=== PATIENT | male | born 1940 | race Caucasian/White ===

== ENCOUNTER 2016-07-08 14:41 | Emergency (ER) | payer OTHER ==
[~2016-07-08] VITALS: Ht 177.8 cm; Wt 79.4 kg
[~2016-07-08 14:41] MED LIST: ALBU8.5H2 IH; APIX5TAB PO; ATEN25TA PO; CELE-85 PO; CYAN10006 IM; DARU400T2 PO; DILT180C66 PO; ELVI1TAB3 PO; ERGO500047 PO; FINA5TAB11 PO; FURO40TA5 PO; GLIP10TA11 PO; HYDR10TA14 PO; INSU100V7 SQ; LISI20TA61 PO; LORA0.5T PO; LOTE5DRO3 EACHEYE; MINE454C9 TP; OXYC15TA2 PO; PANT40TA4 PO; POTA8TAB8 PO; PREG300C PO; PREG75CA PO; ROPI4TAB4 PO; SITA100T PO
[2016-07-08] MEDS ORDERED: BACI/NEOM/POLY B OINT PKT 1 UDPKT PACKET TP ONE (16:00)
[2016-07-08] MEDS ORDERED: LIDOCAINE 1%-EPI 1:100,000 20 ML VIAL TP ONE (16:00)
[2016-07-08 16:29] VITALS: BP 142/68
== END 2016-07-08 16:30 | disposition home or self-care (01) ==
LOC: ER 14:43
DX: S61.412A Laceration without foreign body of left hand, initial encounter (principal); E11.9 Type 2 diabetes mellitus without complications; I10 Essential (primary) hypertension; I48.91 Unspecified atrial fibrillation; F17.210 Nicotine dependence, cigarettes, uncomplicated; W27.8XXA Contact with other nonpowered hand tool, initial encounter; Y93.89 Activity, other specified; Y92.89 Other specified places as the place of occurrence of the external cause; Y99.8 Other external cause status
CPT/HCPCS: A4606; A6402; Z7610

== ENCOUNTER 2016-08-08 07:36 | Inpatient (IN) | payer OTHER ==
[~2016-08-08] VITALS: Ht 180.3 cm; Wt 80.3 kg
--- NOTE | 2016-08-08 07:40 | NUR ---
Bibra from home due to sob. Patient is aao4, appears in no acute distress, respiration even and unlabored. Sating well on room air. Patient denies chest pain. Skin is warm to touch and non diaphoretic. Afebrile at this time, vss. Gowned and placed pt on tele monitor. Will cont to monitor
[2016-08-08 08:32] LABS: BASOPHILS % (AUTO) 0.3 % (0.0-2.0); EOSINOPHILS # (AUTO) 0.1 /CMM (0.0-0.7); EOSINOPHILS % (AUTO) 2.1 % (0.0-6.0); HEMATOCRIT 42 % (39-51); HEMOGLOBIN 13.9 g/dL (13.5-17.5); LYMPHOCYTES # (AUTO) 1.2 /CMM (0.8-4.8); LYMPHOCYTES % (AUTO) 22.2 % (20.0-44.0); MEAN CORPUSCULAR HEMOGLOBIN 31 PG (26.0-33.0); MEAN CORPUSCULAR HGB CONC 33 g/dl (31.0-36.0); MEAN CORPUSCULAR VOLUME 93 fL (80-96); MONOCYTES # (AUTO) 0.5 /CMM (0.1-1.30); MONOCYTES % (AUTO) 9.3 % (2.0-12.0); NEUTROPHILS # (AUTO) 3.5 /CMM (1.8-8.9); NEUTROPHILS % (AUTO) 66.1 % (43.0-81.0); PLATELET COUNT (AUTO) 120 /CMM (150-450); RDW COEFFICIENT OF VARIATION 15.6 (11.5-15.0); RED BLOOD CELL COUNT(AUTO) 4.56 MIL/uL (4.5-6.0); WHITE BLOOD COUNT (AUTO) 5.3 K/uL (4.3-11.0)
[2016-08-08 08:40] LABS: CALCIUM, SERUM 9.5 mg/dL (8.5-10.1); CREATININE 1.3 mg/dL (0.6-1.3); POTASSIUM 4.1 mmol/L (3.5-5.1)
[2016-08-08 08:48] LABS: TROPONIN I 0.017 ng/mL (0.00-0.056)
--- NOTE | 2016-08-08 08:48 | NUR ---
Missy valentino in [facility] - 08/08/16 at 0849 by ANH VARIETY LATHE OPERATOR AT BEDSIDE FOR EVALUATION
--- NOTE | 2016-08-08 08:49 | NUR ---
histopath tech at bs
[2016-08-08 08:50] LABS: PROTHROMBIN TIME 10.7 SECS (9.5-12.7)
[2016-08-08 08:51] LABS: APPEARANCE,URINE SL CLOUDY (CLEAR); BILIRUBIN,URINE NEGATIVE (NEGATIVE); BLOOD, URINE NEGATIVE Ery/uL (NEGATIVE); COLOR,URINE YELLOW (YELLOW); KETONES,URINE NEGATIVE (NEGATIVE); LEUKOCYTE ESTERASE ,URINE NEGATIVE (NEGATIVE); NITRITE, URINE NEGATIVE (NEGATIVE); PH,URINE 7.5 (5.0-8.0); PROTEIN,URINE TRACE mg/dl (NEGATIVE); UGLUCOSE NEGATIVE (NEGATIVE); UROBILINOGEN,URINE 0.2 EU/dL (0.2)
[2016-08-08 08:54] LABS: ALBUMIN 3.7 g/dL (3.4-5.0); BILIRUBIN,DIRECT 0.1 mg/dL (0.0-0.2); BILIRUBIN,TOTAL 0.4 mg/dL (0.2-1.0); TOTAL PROTEIN, SERUM 6.8 g/dL (6.4-8.2)
[2016-08-08 08:59] LABS: LACTIC ACID 0.8 mmol/L (0.4-2.0)
[2016-08-08 09:06] LABS: RBC,URINE NONE SEEN /HPF (0-2); WBC,URINE 0-2 /HPF (0-3)
[2016-08-08 09:07] LABS: ADD URINE CULTURE NO; BACTERIA,URINE None seen /HPF (None Seen); MUCUS,URINE Rare /LPF (None Seen); SQUAMOUS EPITHELIAL CELL,UR Rare /HPF (None Seen)
[2016-08-08] MEDS ORDERED: PREG150C PO (09:08)
[2016-08-08] MEDS ORDERED: DILT300C36 PO (09:08)
[2016-08-08] MEDS ORDERED: DIAZ5TAB PO (09:08)
[2016-08-08] MEDS ORDERED: METF10002 PO (09:08)
[2016-08-08] MEDS ORDERED: IV NS 0.9% 1,000 ML IV PRN (09:53)
[2016-08-08] MEDS ORDERED: DILTIAZEM HCL CD 300 MG PO SCH (10:00)
[2016-08-08] MEDS ORDERED: ACETAMINOPHEN 325 MG TABLET PO PRN ×2 (10:00→10:30)
[2016-08-08] MEDS ORDERED: ERGOCALCIFEROL (VITAMIN D 2) 50,000 UNIT CAPSULE PO SCH ×2 (10:00→10:43)
[2016-08-08] MEDS ORDERED: LEVOFLOXACIN 750 MG /D5W 150ML 750 MG in PREMIX 1 EA IV SCH (10:00)
[2016-08-08] MEDS ORDERED: FINASTERIDE (5 MG) 5 MG TABLET PO SCH (10:00)
[2016-08-08] MEDS ORDERED: Z GUARD REMEDY 2 OZ OINT TP PRN ×2 (10:00→10:30)
[2016-08-08] MEDS ORDERED: PANTOPRAZOLE 40 MG TABLET.DR PO SCH (10:00)
[2016-08-08] MEDS ORDERED: LISINOPRIL (20MG) 20 MG TABLET PO SCH (10:00)
[2016-08-08] MEDS ORDERED: ONDANSETRON HCL/PF 4 MG/2 ML VIAL IVP PRN ×2 (10:00→10:30)
[2016-08-08] MEDS ORDERED: MAGNESIUM HYDROXIDE 30 ML UDC PO PRN ×2 (10:00→10:30)
[2016-08-08] MEDS ORDERED: HYDROCORTISONE 10 MG TABLET PO SCH ×3 (10:00→10:34)
[2016-08-08] MEDS ORDERED: MAG HYDROX/AL HYDROX/SIMETH 30 ML UDC PO PRN ×2 (10:00→10:30)
[2016-08-08] MEDS ORDERED: DIAZEPAM 5 MG TABLET PO PRN ×2 (10:00→10:30)
[2016-08-08] MEDS ORDERED: HYDROCODONE/APAP 5/325MG 1 EACH TABLET PO PRN (10:00)
[2016-08-08] MEDS ORDERED: ZOLPIDEM TARTRATE 5 MG TABLET PO PRN ×2 (10:00→10:30)
[2016-08-08] MEDS ORDERED: APIXABAN 5 MG TABLET PO SCH ×2 (10:00→10:30)
--- NOTE | 2016-08-08 10:16 | NUR ---
Report given to floor RN for anna
--- NOTE | 2016-08-08 10:18 | NUR ---
Patient transported to tele 1. [facility]
--- NOTE | 2016-08-08 10:30 | NUR ---
RN INITIAL NOTES PT RECEIVED IN A GURNEY, TRANSFERRED TO BED SAFELY, ORIENTED PT IN THE ROOM, PT IS ALERT AND ORIENTED X4 HOB ELEVATED AT 35 DEGREES. PT IS ON 2L NS, SATURATION OF 99%, NO SIGNS OF DISTRESS NOTED, IV SITES IS PATENT, NO SIGNS AND SYMPTOMS OF INFECTION OR INFILTRATION. CALL LIGHTS WITHIN REACH,
[2016-08-08 11:00] VITALS: BP 167/65
[2016-08-08] MEDS ORDERED: APIXABAN 5 MG TABLET PO ONE (11:00)
[2016-08-08] MEDS: CELECOXIB 100 MG CAPSULE PO SCH (11:03)
[2016-08-08] MEDS: FINASTERIDE (5 MG) 5 MG TABLET PO SCH (11:04)
[2016-08-08] MEDS: LISINOPRIL (20MG) 20 MG TABLET PO SCH (11:05)
[2016-08-08] MEDS ORDERED: IV SET PRIMARY PUMP SET 1 EA INFUS.SET MC ONE (11:10)
[2016-08-08] MEDS: DILTIAZEM HCL CD 300 MG PO SCH (11:15)
[2016-08-08] MEDS: LEVOFLOXACIN 750 MG /D5W 150ML 750 MG in PREMIX 1 EA IV SCH (11:15)
[2016-08-08] MEDS: PREGABALIN 25 MG CAPSULE PO SCH ×2 (11:15→16:44)
[2016-08-08] MEDS: IV NS 0.9% 1,000 ML IV PRN (11:16)
--- NOTE | 2016-08-08 11:30 | NUR ---
RN NOTES: Referred to Dr. Manning BP is high 197/70mmhg, with NNO, as per MD to continue to monitor. Referred to MD as well for Blood sugar check ACHS with no insulin coverage, noted and carried out.
[2016-08-08 12:00] VITALS: BP 197/70
[2016-08-08] MEDS: BLOOD SUGAR DIAGNOSTIC 1 EACH STRIP IN SCH ×3 (13:09→21:26)
[2016-08-08] MEDS: HYDROCODONE/APAP 5/325MG 1 EACH TABLET PO PRN (13:27)
[2016-08-08 14:30] VITALS: BP 179/60
--- NOTE | 2016-08-08 15:22 | NUR ---
RN NOTES CALLED DR FRIEDMAN FOR ORDER REGARDING PT HIGH BLOOD PRESSURE, CURRENT VS 191/61, ORDERED HYDRALAZINE 25 MG EVERY 6 HOURS. CARRIED OUT ORDER.
[2016-08-08] MEDS ORDERED: hydrALAZINE HCL 25 MG TABLET PO SCH ×2 (15:30→16:51)
[2016-08-08 16:00] VITALS: BP 191/66
[2016-08-08] MEDS: METFORMIN 500 MG TABLET PO SCH (16:44)
[2016-08-08 17:00] VITALS: BP 181/78
--- NOTE | 2016-08-08 17:41 | NUR ---
RN NOTES: patient noted episodes of bradycardia lowest of 40bpm, patient is asleep and when awake HR goes up to 50-57bpm, stable, no acute distress noted, no pain or discomfort noted, as per MD NNO and continue to monitor. Informed Dr. Manning as well latest BP of 181/78mmhg and HR 51bpm.
[2016-08-08] MEDS: HYDROCORTISONE 5 MG TABLET PO SCH (19:25)
--- NOTE | 2016-08-08 19:28 | NUR ---
RN NOTES; Patient remain stable within shift despite having Bradycardia, no signs and symptoms of distress noted. Call light placed within reached, able to make needs known, verbalized understanding to press call light when in need of any assistance. To monitor BP and refer accordingly. Endorsed to next shift for continuity of care.
--- NOTE | 2016-08-08 19:30 | NUR ---
RN INITIAL NOTES RECEIVED PATIENT IN BED, AWAKE AND ALERT. PATIENT WITH NO ACUTE DISTRESS OBSERVED AT THIS TIME. SINUS FEDERICO WITH HR OF 57 AT THIS TIME. ON 2LPM OF O2 VIA NC. RESPIRATION IS EVEN AND UNLABORED WITH NO DISTRESS. L FOREARM G20, PATENT AND INTACT, NO SIGNS OF INFILTRATION, IVF RUNNING ORDERED. PATIENT'S NEEDS ANTICIPATED AND MET. SAFETY AND COMFORT ENSURED. BED IN LOW AND LOCKED POSITION. CALL LIGHT IN REACH. BED ALARM IN PLACE FOR FALL PRECAUTION. WILL MONITOR.
[2016-08-08 20:00] VITALS: BP 179/80
--- NOTE | 2016-08-08 20:20 | NUR ---
RN NOTES PATIENT COMPLAINING OF PAIN ON LOWER BACK AND REQUESTED FOR OXYCODONE IR PRN. RECHECKED ON PATIENT AND PATIENT IN BED, SLEEPING WELL AND COMFORTABLY WITH NO DISTRESS. HELD OXYCODONE IR AT THIS TIME. WILL ADMINISTER TO PATIENT NEEDED AND PER REQUEST. WILL MONITOR.
[2016-08-08] MEDS: hydrALAZINE HCL 25 MG TABLET PO SCH (21:27)
[2016-08-08] MEDS: oxyCODONE IR immediate release 5 MG CAPSULE PO PRN (21:28)
--- NOTE | 2016-08-08 21:30 | NUR ---
RN NOTES PATIENT AWAKE AT THIS TIME. ALL DUE MEDS GIVEN ORDERED. PATIENT WITH COMPLAIN OF LOWER BACK PAIN, 12/15. OXY IR PRN GIVEN ORDERED. NEEDS ANTICIPATED AND MET. CALL LIGHT IN REACH.
--- NOTE | 2016-08-08 23:30 | NUR ---
RN NOTES PATIENT'S CAREGIVER WAS IN THE UNIT AND PROVIDED SUPPLY FOR PREZISTA, GENVOYA, ELIQUIS; MEDICATIONS NOT AVAILABLE IN THE PHARMACY. PATIENT INSISTED ON TAKING HIS MAINTENANCE MEDICATIONS HE HAS MISSED ALL HIS MEDS THIS MORNING. INFORMED DR. FERRARO OF THE PATIENT'S MEDICATIONS READILY AVAILABLE AT THIS TIME AND THE PATIENT'S INSISTANCE ON TAKING THE MEDS. DR. FERRARO IN THE UNIT, SAW THE PILLS AND THE MEDICATION LABEL AND OKAYED FOR THE MEDICATIONS TO BE ADMINISTERED ONE TIME TONIGHT AND RESUME REGULAR ADMINISTRATION FREQUENCY IN AM. ORDER NOTED AND CARRIED OUT. CN MADE AWARE. CAREGIVER TO PROVIDE ANOTHER SUPPLY FOR AM DOSE.
[2016-08-09] VITALS (7 sets, daily range): BP systolic 157–190; BP diastolic 63–107
[2016-08-09] MEDS ORDERED: HOME MED MISCELLANEOUS PO ONE ×3
[2016-08-09] MEDS: IV NS 0.9% 1,000 ML IV PRN (04:25)
[2016-08-09] MEDS: hydrALAZINE HCL 25 MG TABLET PO SCH ×4 (04:26→21:44)
--- NOTE | 2016-08-09 05:00 | NUR ---
RN NOTES PATIENT'S BS CHECKED PER PATIENT'S REQUEST. NOTED TO BE 123. NO SIGNS OF HYPO/HYPERGLYCEMIA. PATIENT'S BP IS 171/63, 56. DENIES ANY CARDIAC DISTRESS AND DISCOMFORT. PATIENT'S NEEDS ANTICIPATED AND MET. NO C/O PAIN AND DISCOMFORT AT THIS TIME. HYDRALAZINE ADMINISTERED ORDERED. CALL LIGHT IN REACH. WILL MONITOR.
[2016-08-09] MEDS: oxyCODONE IR immediate release 5 MG CAPSULE PO PRN ×2 (06:20→18:12)
[2016-08-09] MEDS: PANTOPRAZOLE 40 MG TABLET.DR PO SCH (06:30)
--- NOTE | 2016-08-09 06:57 | NUR ---
RN CLOSING NOTES PATIENT WITH NO ACUTE DISTRESS OBSERVED OVERNIGHT. PATIENT REFUSED ACCUCHECK AT THIS TIME, STATED THAT HE IS COMFORTABLY WITH THE SUGAR CHECKED AT 0500, THAT IS 123. COMPLAINED OF 9/10 "SPINAL" PAIN, LOWER BACK. OXY IR PRN GIVEN PER PATIENT'S REQUEST. PATIENT SLEPT COMFORTABLY FOR THE NIGHT, REPORTS THAT HE IS WELL RESTED. ALL DUE MEDS GIVEN ORDERED. PATIENT'S NEEDS ANTICIPATED AND MET. SAFETY AND COMFORT ENSURED. BED IN LOW AND LOCKED POSITION. CALL LIGHT IN REACH. WILL ENDORSE ACCORDINGLY FOR CONTINUITY OF CARE.
[2016-08-09] MEDS: BLOOD SUGAR DIAGNOSTIC 1 EACH STRIP IN SCH ×4 (07:37→21:44)
--- NOTE | 2016-08-09 07:42 | NUR ---
RN INITIAL NOTES PT IS IN BED, ELEVATED 35 DEGREES, PT ALERT AND ORIENTED X4, PT IS ON 2L NS, SATURATION OF 99%, NO SIGNS OF DISTRESS NOTED, IV SITES IS PATENT, NO SIGNS AND SYMPTOMS OF INFECTION OR INFILTRATION. CALL LIGHTS WITHIN REACH,
[2016-08-09] MEDS ORDERED: APIXABAN 2.5 MG TABLET PO SCH (09:07)
[2016-08-09] MEDS: PREGABALIN 25 MG CAPSULE PO SCH ×2 (09:23→18:07)
[2016-08-09] MEDS: FINASTERIDE (5 MG) 5 MG TABLET PO SCH (09:24)
[2016-08-09] MEDS: CELECOXIB 100 MG CAPSULE PO SCH (09:24)
[2016-08-09] MEDS: METFORMIN 500 MG TABLET PO SCH ×2 (09:24→16:58)
[2016-08-09] MEDS: HYDROCORTISONE 20 MG TABLET PO SCH (09:41)
--- NOTE | 2016-08-09 09:45 | NUR ---
WOUND CARE CONSULT: PATIENT SEEN AND SKIN ASSESSMENT DONE. PRIVATE CAREGIVE AT THE BEDSIDE. PATIENT ALERT, ORIENTED, AMBULATORY, INDEPENDENT WITH BED MOBILITY, ROBERT 21, CONTINENT. SEE TODAY'S SKIN ASSESSMENT IN PCS ALONG WITH RECOMMENDATIONS FOR SKIN CARE, MOISTURE PROTECTION WITH Z GUARD ORDERED, OFFLOADING. ALL DISCUSSED WITH NURSING STAFF. MD IN AGREEMENT WITH PLAN OF CARE. Addendum: 08/09/16 at 0947 by JÚNIOR DURAND WNDNU Amended: Links added.
[2016-08-09] MEDS: HYDROCODONE/APAP 5/325MG 1 EACH TABLET PO PRN (11:55)
[2016-08-09] MEDS: LEVOFLOXACIN 750 MG /D5W 150ML 750 MG in PREMIX 1 EA IV SCH (11:57)
--- NOTE | 2016-08-09 12:35 | NUR ---
RN NOTES: Referred to Dr. Prabhakar, patients HR is on the lowside HR's on the 50's and BP high 169/78mmhg, with no signs and symptoms of distress noted. NO chestpain, no pain or discomfort noted. Patient has Cardizem 300mgs, Hydralazine 25mg and Lisinopril 40mgs, as per MD give Lisinopril and withhold the rest of the Anti-HPN medication, noted and carried out.
[2016-08-09] MEDS: DILTIAZEM HCL CD 300 MG PO SCH (12:45)
[2016-08-09] MEDS: DARUNAVIR ETHANOLATE 800 MG PO SCH (14:21)
[2016-08-09] MEDS: [UNRECOGNIZED DRUG - OTHER] PO SCH (14:21)
[2016-08-09] MEDS: LISINOPRIL (20MG) 20 MG TABLET PO SCH (14:21)
--- NOTE | 2016-08-09 16:17 | NUR ---
RN NOTES: Seen and examined by Dr. Prabhakra with orders noted and carried out. Dc IVF and noted BP high of 190/82mmhg HR 55 ok to give Hydralazine as ordered.
[2016-08-09] MEDS: HOME MED - ELIQUIS 5MG PO SCH (16:58)
[2016-08-09] MEDS: HYDROCORTISONE 5 MG TABLET PO SCH (17:00)
--- NOTE | 2016-08-09 18:59 | NUR ---
RN CLOSING NOTES PT IS SITTING IN CHAIR, NO SIGNS AND SYMPTOMS OF DISTRESS NOTED, PT IS ON ROOM AIR, PT WAS ASSISTED WITH TURNING AND REPOSITIONING, IV SITES PATENT, NO SIGNS AND SYMPTOMS OF INFECTION/INFILTRATION NOTED, ALL MEDICATIONS GIVEN AND PT TOLERATED IT WELL. SAFETY MEASURES MAINTAINED, CALL LIGHTS WITHIN REACH. ENDORSED TO THE NIGHT NURSE
--- NOTE | 2016-08-09 20:13 | NUR ---
MS1/RN RECEIVE PATIENT AWAKE, ALERT, ORIENTED, SITTING IN CHAIR AT BEDSIDE, COMFORTABLE, NO C/O PAIN AT THIS TIME, NO SIGNS OF DISTRESS, CALL LIGHT IN REACH. WILL MONITOR.
--- NOTE | 2016-08-10 00:21 | NUR ---
MS1/RN SLEEPING AT THIS TIME, AROUSABLE, APPEAR COMFORTABLE, NO SIGNS OF DISTRESS NOTED, CALL LIGHT IN REACH. WILL CONTINUE TO MONITOR.
[2016-08-10] MEDS: hydrALAZINE HCL 25 MG TABLET PO SCH ×2 (03:17→08:46)
[2016-08-10] MEDS: oxyCODONE IR immediate release 5 MG CAPSULE PO PRN ×2 (03:22→09:22)
[2016-08-10 04:00] VITALS: BP 153/82
--- NOTE | 2016-08-10 06:32 | NUR ---
MS1/RN PATIENT IS AWAKE, COMFORTABLE, NO CHANGE IN CONDITION. ALL NEEDS ATTENDED AT THIS TIME. WILL CONTINUE TO MONITOR.
[2016-08-10 07:05] LABS: BASOPHILS % (AUTO) 0.2 % (0.0-2.0); EOSINOPHILS # (AUTO) 0.2 /CMM (0.0-0.7); EOSINOPHILS % (AUTO) 2.7 % (0.0-6.0); HEMATOCRIT 39 % (39-51); HEMOGLOBIN 13.2 g/dL (13.5-17.5); LYMPHOCYTES # (AUTO) 2.1 /CMM (0.8-4.8); LYMPHOCYTES % (AUTO) 30.9 % (20.0-44.0); MEAN CORPUSCULAR HEMOGLOBIN 32 PG (26.0-33.0); MEAN CORPUSCULAR HGB CONC 34 g/dl (31.0-36.0); MEAN CORPUSCULAR VOLUME 94 fL (80-96); MONOCYTES # (AUTO) 0.6 /CMM (0.1-1.30); MONOCYTES % (AUTO) 9.5 % (2.0-12.0); NEUTROPHILS # (AUTO) 3.8 /CMM (1.8-8.9); NEUTROPHILS % (AUTO) 56.7 % (43.0-81.0); PLATELET COUNT (AUTO) 105 /CMM (150-450); RDW COEFFICIENT OF VARIATION 15.3 (11.5-15.0); RED BLOOD CELL COUNT(AUTO) 4.13 MIL/uL (4.5-6.0); WHITE BLOOD COUNT (AUTO) 6.7 K/uL (4.3-11.0)
[2016-08-10 07:15] LABS: CALCIUM, SERUM 8.8 mg/dL (8.5-10.1); CREATININE 1.1 mg/dL (0.6-1.3); POTASSIUM 3.9 mmol/L (3.5-5.1)
[2016-08-10] MEDS: PANTOPRAZOLE 40 MG TABLET.DR PO SCH (07:30)
[2016-08-10] MEDS: BLOOD SUGAR DIAGNOSTIC 1 EACH STRIP IN SCH ×2 (07:45→11:27)
[2016-08-10 08:00] VITALS: BP 171/83
[2016-08-10] MEDS: LISINOPRIL (20MG) 20 MG TABLET PO SCH (08:46)
[2016-08-10] MEDS: FINASTERIDE (5 MG) 5 MG TABLET PO SCH (08:46)
[2016-08-10] MEDS: CELECOXIB 100 MG CAPSULE PO SCH (08:46)
[2016-08-10] MEDS: METFORMIN 500 MG TABLET PO SCH (08:46)
[2016-08-10] MEDS: DARUNAVIR ETHANOLATE 800 MG PO SCH (08:47)
[2016-08-10] MEDS: HYDROCORTISONE 20 MG TABLET PO SCH (08:47)
[2016-08-10 08:48] VITALS: BP 171/83
[2016-08-10] MEDS: DILTIAZEM HCL CD 300 MG PO SCH (08:48)
[2016-08-10] MEDS: HOME MED - ELIQUIS 5MG PO SCH (08:48)
[2016-08-10] MEDS: [UNRECOGNIZED DRUG - OTHER] PO SCH (08:48)
[2016-08-10] MEDS: PREGABALIN 25 MG CAPSULE PO SCH (08:56)
--- NOTE | 2016-08-10 09:00 | NUR ---
MS RN NOTE Pt AOx4. No s/s distress. BP 171/83, pt says BP normally that high, no chest pain, gave morning BP meds. Left forearm IV SL. Oxycodone given for back pain. Went on walk around floor with caregiver and walker. Will cont to monitor.
[2016-08-10] MEDS: LEVOFLOXACIN 750 MG /D5W 150ML 750 MG in PREMIX 1 EA IV SCH (11:24)
[2016-08-10] MEDS ORDERED: LEVO500T15 PO (13:32)
[2016-08-10] MEDS ORDERED: IPRA3AMP IH (13:32)
--- NOTE | 2016-08-10 14:32 | NUR ---
DISCHARGE Pt discharging with activities coordinator in wheelchair to home. IV removed. Discharge education provided, script sent with pt with paperwork.
== END 2016-08-10 16:42 | disposition home or self-care (01) | DRG 193 ==
LOC: ER 07:38 → TELE1 10:23 → MEDSG1 08-09 06:01
PROVIDERS: ADMIT Internal Medicine; ATTEND Internal Medicine
DX: J15.9 Unspecified bacterial pneumonia (principal); N17.0 Acute kidney failure with tubular necrosis; J98.11 Atelectasis; J47.9 Bronchiectasis, uncomplicated; F03.90 Unspecified dementia, unspecified severity, without behavioral disturbance, psychotic disturbance, mood disturbance, and anxiety; G62.9 Polyneuropathy, unspecified; G89.29 Other chronic pain; M54.5 Low back pain; N40.0 Benign prostatic hyperplasia without lower urinary tract symptoms; I10 Essential (primary) hypertension; E11.9 Type 2 diabetes mellitus without complications; Z79.52 Long term (current) use of systemic steroids; Z86.718 Personal history of other venous thrombosis and embolism; G25.81 Restless legs syndrome; I48.91 Unspecified atrial fibrillation; D64.9 Anemia, unspecified; F32.9 Major depressive disorder, single episode, unspecified; Z79.01 Long term (current) use of anticoagulants; Z79.84 Long term (current) use of oral hypoglycemic drugs
CPT/HCPCS: 36415; 71010-TC; 80048-TC; 80076-TC; 81000-TC; 82962-TC; 83605-TC; 83880; 84484-TC; 85025-TC; 85730-TC; 87040-TC; 87081-TC; 87086-TC; A4216; A4606; G6039-TC; J1956; J7030; Z7610

== ENCOUNTER 2017-01-04 13:54 | Inpatient (IN) | payer OTHER ==
[~2017-01-04] VITALS: Ht 177.8 cm; Wt 76.7 kg
[~2017-01-04 13:54] MED LIST changes: -ALBU8.5H2 IH; -ATEN25TA PO; -CYAN10006 IM; +DIAZ5TAB PO; -DILT180C66 PO; +DILT300C36 PO; -FURO40TA5 PO; -GLIP10TA11 PO; -INSU100V7 SQ; +IPRA3AMP IH; +LEVO500T15 PO; -LORA0.5T PO; -LOTE5DRO3 EACHEYE; +METF10002 PO; -MINE454C9 TP; -PANT40TA4 PO; -POTA8TAB8 PO; +PREG150C PO; -PREG300C PO; -PREG75CA PO; -SITA100T PO
--- NOTE | 2017-01-04 14:30 | NUR ---
BB FAMILY: ESOPHAGEAL STRICTURE- PT SAID HE FEELS LIKE SOMETHING STUCK IN HIS THROAT. SEEN BY MD FOR EVAL. NO SOB NOTED. ABLE TO TALK FULL SENTENCES. VSS. SAFETY AND COMFORT MEASURES PROVIDED. WILL MONITOR.
[2017-01-04 15:23] LABS: BASOPHILS % (AUTO) 0.8 % (0.0-2.0); EOSINOPHILS # (AUTO) 0.2 /CMM (0.0-0.7); EOSINOPHILS % (AUTO) 2.7 % (0.0-6.0); HEMATOCRIT 41 % (39-51); HEMOGLOBIN 13.3 g/dL (13.5-17.5); LYMPHOCYTES # (AUTO) 1.5 /CMM (0.8-4.8); LYMPHOCYTES % (AUTO) 25.2 % (20.0-44.0); MEAN CORPUSCULAR HEMOGLOBIN 31 PG (26.0-33.0); MEAN CORPUSCULAR HGB CONC 33 g/dl (31.0-36.0); MEAN CORPUSCULAR VOLUME 93 fL (80-96); MONOCYTES # (AUTO) 0.5 /CMM (0.1-1.30); MONOCYTES % (AUTO) 8.2 % (2.0-12.0); NEUTROPHILS # (AUTO) 3.9 /CMM (1.8-8.9); NEUTROPHILS % (AUTO) 63.1 % (43.0-81.0); PLATELET COUNT (AUTO) 108 /CMM (150-450); RDW COEFFICIENT OF VARIATION 13.1 (11.5-15.0); RED BLOOD CELL COUNT(AUTO) 4.35 MIL/uL (4.5-6.0); WHITE BLOOD COUNT (AUTO) 6.1 K/uL (4.3-11.0)
[2017-01-04] MEDS ORDERED: ONDANSETRON HCL/PF 4 MG/2 ML VIAL IVP ONE (15:30)
[2017-01-04 15:33] LABS: CALCIUM, SERUM 9.3 mg/dL (8.5-10.1); CARBON DIOXIDE 29 mmol/L (21-32); CHLORIDE 106 mmol/L (98-107); CREATININE 1.5 mg/dL (0.6-1.3); POTASSIUM 3.6 mmol/L (3.5-5.1); SODIUM SERUM 141 mmol/L (136-145); UREA NITROGEN, BLOOD 39 mg/dL (7-18)
[2017-01-04 15:40] LABS: ALANINE AMINOTRANSFERASE 29 U/L (12-78); ALBUMIN 3.4 g/dL (3.4-5.0); ALKALINE PHOSPHATASE 44 U/L (46-116); ASPARTATE AMINOTRANSFERASE 25 U/L (15-37); BILIRUBIN,DIRECT 0.1 mg/dL (0.0-0.2); BILIRUBIN,TOTAL 0.4 mg/dL (0.2-1.0); GLUCOSE 114 mg/dL (74-106); LIPASE 404 U/L (73-393); TOTAL PROTEIN, SERUM 6.6 g/dL (6.4-8.2)
[2017-01-04] MEDS ORDERED: ONDANSETRON HCL/PF 4 MG/2 ML VIAL ONE (15:43)
[2017-01-04] MEDS ORDERED: IV NS 0.9% 500 ML BAG IV ONE (16:00)
[2017-01-04] MEDS ORDERED: Medication Not On Formulary EA (Ipratropium/Albuterol Sulfate (Duoneb 2.5-0.5 Mg/3 Ml So IH SCH (16:30)
[2017-01-04] MEDS ORDERED: Z GUARD REMEDY 2 OZ OINT TP PRN (16:30)
[2017-01-04] MEDS ORDERED: ONDANSETRON HCL/PF 4 MG/2 ML VIAL IVP PRN (16:30)
[2017-01-04] MEDS ORDERED: ACETAMINOPHEN 325 MG TABLET PO PRN (16:30)
[2017-01-04] MEDS ORDERED: HYDROCODONE/APAP 5/325MG 1 EACH TABLET PO PRN (16:30)
[2017-01-04] MEDS ORDERED: ZOLPIDEM TARTRATE 5 MG TABLET PO PRN (16:30)
[2017-01-04] MEDS ORDERED: DIAZEPAM 5 MG TABLET PO PRN (16:30)
[2017-01-04] MEDS ORDERED: MAG HYDROX/AL HYDROX/SIMETH 30 ML UDC PO PRN (16:30)
[2017-01-04] MEDS ORDERED: MAGNESIUM HYDROXIDE 30 ML UDC PO PRN (16:30)
[2017-01-04] MEDS ORDERED: METFORMIN 500 MG TABLET PO SCH (17:00)
--- NOTE | 2017-01-04 17:34 | NUR ---
REPORT GIVEN TO PAM CASTILLO FOR IVANA
[2017-01-04 17:58] VITALS: BP 135/78
[2017-01-04] MEDS ORDERED: HYDROCORTISONE 10 MG TABLET PO SCH (18:00)
[2017-01-04] MEDS ORDERED: ALBUTEROL FS 2.5 MG/3 ML VIAL.NEB NEB PRN (18:30)
[2017-01-04] MEDS ORDERED: IPRATROPIUM NEB FS 0.5 MG/2.5 ML AMPUL.NEB NEB PRN (18:30)
--- NOTE | 2017-01-04 18:38 | NUR ---
MS/RN REPORT RECEIVED PATIENT FROM ER. REPORT GIVEN BY NANCY CASTILLO. ALERT AND ORIENTED TIMES 4. AMBULATORY. NO SIGNS OF ACUTE DISTRESS. NO COMPLAIN OF PAIN OR DISCOMFORT. ALL NEEDS ATTENDED TO. CALL LIGHT WITHIN REACH. WILL ENDORSE TO NEXT SHIFT FOR CONTINUITY OF CARE.
[2017-01-04] MEDS: IV D5/0.45 NACL 1,000 ML IV PRN (18:45)
--- NOTE | 2017-01-04 19:00 | NUR ---
MS RN OPENING NOTES: RECEIVED PT AND IS RESTING IN BED. PT IS AWAKE AND IS A/OX4. WALKER AT BEDSIDE. URINAL AT BEDSIDE. NO S/S OF DISTRESS. NO COMPLAINTS OF PAIN/DISCOMFORT AT THIS TIME. PT REMINDED THAT HE IS NPO FOR NOW. CALL LIGHT WITHIN PT'S REACH. BED KEPT IN LOW, LOCKED POSITION, AND SIDE RAILS X 2UP. PT HAS IV ON L FOREARM#22G AND IS BEING INFUSED WITH D5 1/2 NS AT 100ML/HR. WILL CONTINUE TO MONITOR PT.
[2017-01-04 20:00] VITALS: BP 134/82
[2017-01-04] MEDS: HYDROCORTISONE 5 MG TABLET PO SCH (21:00)
[2017-01-04] MEDS: PREGABALIN 25 MG CAPSULE PO SCH (21:00)
[2017-01-04] MEDS: FAMOTIDINE/PF INJ 20 MG/2 ML VIAL IV SCH (21:17)
[2017-01-05] VITALS (8 sets, daily range): BP systolic 127–148; BP diastolic 77–80
[2017-01-05] MEDS: MORPHINE SULFATE INJ 2 MG/ML DISP.SYRIN IV PRN ×2 (02:56→06:56)
--- NOTE | 2017-01-05 02:56 | NUR ---
MS RN NOTES: PT IS COMPLAINING OF 9/10 LOWER BACK, SHARP PAIN. PT WAD ADMINISTERED MORPHINE 2MG VIA IV. WILL CONTINUE TO MONITOR PT.
[2017-01-05] MEDS: IV D5/0.45 NACL 1,000 ML IV PRN ×2 (04:35→21:21)
--- NOTE | 2017-01-05 06:26 | NUR ---
MS RN CLOSING NOTES: ALL NEEDS WERE ATTENDED AND ANTICIPATED FOR. PT IS IN BED RESTING AND IS ASLEEP. PT IS A/OX3-4. WALKER AT BEDSIDE. URINAL AT BEDSIDE WELL. OUTPUT WAS 2200ML. PT REMINDED THAT HE IS NPO AGAIN AND THAT HE HAS A SWALLOW EVAL THIS AM. CALL LIGHT WITHIN PT'S REACH. BED KEPT IN LOW, LOCKED POSITION AND SIDE RAILS X 2 UP. PT HAS IV ON L FOREARM #22G AND IS BEING INFUSED WITH D5 1/2NS AT 100ML/HR. CONSENTS FOR BLOOD TRANSFUSION, ANAESTHESIA, AND EGD HAVE BEEN SIGNED AND PLACED IN CHART. WILL ENDORSE TO AM NURSE FOR IVANA.
[2017-01-05 06:54] LABS: BASOPHILS % (AUTO) 0.5 % (0.0-2.0); EOSINOPHILS # (AUTO) 0.2 /CMM (0.0-0.7); EOSINOPHILS % (AUTO) 2.6 % (0.0-6.0); HEMATOCRIT 42 % (39-51); HEMOGLOBIN 13.9 g/dL (13.5-17.5); LYMPHOCYTES # (AUTO) 1.6 /CMM (0.8-4.8); LYMPHOCYTES % (AUTO) 26.1 % (20.0-44.0); MEAN CORPUSCULAR HEMOGLOBIN 32 PG (26.0-33.0); MEAN CORPUSCULAR HGB CONC 34 g/dl (31.0-36.0); MEAN CORPUSCULAR VOLUME 94 fL (80-96); MONOCYTES # (AUTO) 0.7 /CMM (0.1-1.30); MONOCYTES % (AUTO) 10.9 % (2.0-12.0); NEUTROPHILS # (AUTO) 3.6 /CMM (1.8-8.9); NEUTROPHILS % (AUTO) 59.9 % (43.0-81.0); PLATELET COUNT (AUTO) 89 /CMM (150-450); RDW COEFFICIENT OF VARIATION 13.9 (11.5-15.0); RED BLOOD CELL COUNT(AUTO) 4.41 MIL/uL (4.5-6.0); WHITE BLOOD COUNT (AUTO) 6.1 K/uL (4.3-11.0)
--- NOTE | 2017-01-05 06:59 | NUR ---
MS RN NOTES: PT COMPLAINED OF 10/10 LOWER BACK DULL PAIN. PT WAS ADMINISTERED MORPHINE 2MG VIA IV. PT'S V/S WERE 129/67 HR 77, AND RR 18. WILL CONTINUE TO MONITOR PT.
[2017-01-05 07:22] LABS: ALANINE AMINOTRANSFERASE 31 U/L (12-78); ALBUMIN 3.2 g/dL (3.4-5.0); ALKALINE PHOSPHATASE 40 U/L (46-116); ASPARTATE AMINOTRANSFERASE 24 U/L (15-37); BILIRUBIN,TOTAL 0.4 mg/dL (0.2-1.0); CARBON DIOXIDE 31 mmol/L (21-32); CHLORIDE 108 mmol/L (98-107); CREATININE 1.3 mg/dL (0.6-1.3); GLUCOSE 148 mg/dL (74-106); MAGNESIUM 1.7 mg/dL (1.8-2.4); PHOSPHORUS 2.3 mg/dL (2.5-4.9); SODIUM SERUM 144 mmol/L (136-145); TOTAL PROTEIN, SERUM 6.4 g/dL (6.4-8.2); UREA NITROGEN, BLOOD 24 mg/dL (7-18)
--- NOTE | 2017-01-05 07:35 | NUR ---
RN MS NOTES RECEIVED PATIENT IN BED VERBALLY RESPONSIVE, IN NO APPARENT DISTRESS. PATIENT COMPLAINING OF LOWER BACK PAIN, MORPHINE GIVEN AT 0656 BY PREVIOUS SHIFT. PATIENT IS NPO, PENDING SWALLOW EVAL. LFA IV LINE PATENT. ALL NEEDS MET, CALL LIGHT WITHIN REACH.
[2017-01-05] MEDS: DILTIAZEM HCL CD 300 MG PO SCH (09:00)
[2017-01-05] MEDS ORDERED: LEVOFLOXACIN (500MG) 500 MG TABLET PO SCH (09:00)
[2017-01-05] MEDS: FINASTERIDE (5 MG) 5 MG TABLET PO SCH (09:00)
[2017-01-05] MEDS: LISINOPRIL (20MG) 20 MG TABLET PO SCH (09:00)
[2017-01-05] MEDS ORDERED: HYDROCORTISONE 10 MG TABLET PO SCH (09:00)
[2017-01-05] MEDS: HYDROCORTISONE 20 MG TABLET PO SCH (09:00)
[2017-01-05] MEDS ORDERED: PANTOPRAZOLE 40 MG VIAL IV SCH (09:00)
[2017-01-05] MEDS: PREGABALIN 25 MG CAPSULE PO SCH ×2 (09:00→17:03)
--- NOTE | 2017-01-05 09:00 | NUR ---
RN MS NOTES PATIENT SEEN AND EVALUATED BY DR FERRARO, PLAN OF CARE DISCUSSED. NEW VERBAL ORDERS NOTED AND CARRIED OUT.
[2017-01-05 09:44] LABS: EOSINOPHILS % (MANUAL) 3 % (0-4); LYMPHOCYTES % (MANUAL) 35 % (16-48); MONOCYTES % (MANUAL) 7 % (0-11.0); NEUTROPHILS % (MANUAL) 55 (42-76)
[2017-01-05] MEDS: FAMOTIDINE/PF INJ 20 MG/2 ML VIAL IV SCH (09:44)
--- NOTE | 2017-01-05 09:53 | NUR ---
RN MS NOTES PATIENT WENT DOWN TO OR IN STABLE CONDITION. NO APPARENT DISTRESS NOTED, PATIENT IS VERBALLY RESPONSIVE. CONSENT SIGNED, PRE OP CHECK LIST COMPLETE.
[2017-01-05] MEDS ORDERED: MORPHINE SULFATE INJ 2 MG/ML DISP.SYRIN IV PRN (10:30)
--- NOTE | 2017-01-05 11:50 | NUR ---
RN MS NOTES PATIENT RETURNED FROM OR IN STABLE CONDITION. PATIENT A/O X 4, NO APPARENT DISTRESS NOTED.
[2017-01-05] MEDS: Magnesium 1GM/D5W 100ML PREMIX 100 ML IV SCH ×2 (13:24→14:44)
--- NOTE | 2017-01-05 13:30 | NUR ---
RN MS NOTES RECEIVED NEW ORDERS FROM DR FERRARO. ALL ORDERS NOTED AND CARRIED OUT.
[2017-01-05] MEDS ORDERED: K PHOS NEUTRAL 250 MG TABLET PO ONE (17:00)
[2017-01-05] MEDS: PANTOPRAZOLE 40 MG TABLET.DR PO SCH (17:03)
[2017-01-05] MEDS: oxyCODONE HCL SR 20MG TAB.SR.12H PO SCH (17:04)
[2017-01-05] MEDS: HYDROCORTISONE 5 MG TABLET PO SCH (17:05)
[2017-01-05] MEDS: PREZCOBIX PO SCH (17:46)
[2017-01-05] MEDS: TIVICAY 50 MG PO SCH (17:47)
--- NOTE | 2017-01-05 19:15 | NUR ---
MS RN NOTES RECEIVED SITTING COMFORTABLY ON BEDSIDE CHAIR,A/O X 3-4,BREATHING NON LABORED.PRESENT IVF INFUSING WELL VIA IV PUMP ON RFA,SITE PATENT,CLAIMED HE WAS ABLE TO ATE DINNER,NO ASPIRATION.CALL LIGHT IN REACH,NEEDS ANTICIPATED.
--- NOTE | 2017-01-05 19:22 | NUR ---
RN MS CLOSING NOTES PATIENT IN BED, VERBALLY RESPONSIVE, IN NO APPARENT DISTRESS. PATIENT DENIES SOB, NO C/O PAIN AT THIS TIME. ALL DUE MEDS GIVEN ALL NEEDS MET. IV LINE ON RFA PATENT. WILL ENDORSE CARE TO PM SHIFT.
--- NOTE | 2017-01-05 22:00 | NUR ---
MS RN NOTES DUE PO MEDS ADMINISTERED
--- NOTE | 2017-01-06 00:15 | NUR ---
MS RN NOTES AWAKE,WATCHING TV PROGRAM,DENIES DISCOMFORTS
[2017-01-06] MEDS: oxyCODONE HCL SR 20MG TAB.SR.12H PO SCH (03:31)
[2017-01-06 06:20] LABS: BASOPHILS % (AUTO) 0.4 % (0.0-2.0); EOSINOPHILS # (AUTO) 0.1 /CMM (0.0-0.7); EOSINOPHILS % (AUTO) 1.8 % (0.0-6.0); HEMATOCRIT 44 % (39-51); HEMOGLOBIN 14.4 g/dL (13.5-17.5); LYMPHOCYTES % (AUTO) 29.4 % (20.0-44.0); MEAN CORPUSCULAR HEMOGLOBIN 31 PG (26.0-33.0); MEAN CORPUSCULAR HGB CONC 33 g/dl (31.0-36.0); MEAN CORPUSCULAR VOLUME 94 fL (80-96); MONOCYTES # (AUTO) 0.7 /CMM (0.1-1.30); MONOCYTES % (AUTO) 10.6 % (2.0-12.0); NEUTROPHILS # (AUTO) 3.8 /CMM (1.8-8.9); NEUTROPHILS % (AUTO) 57.8 % (43.0-81.0); PLATELET COUNT (AUTO) 100 /CMM (150-450); RDW COEFFICIENT OF VARIATION 14.5 (11.5-15.0); RED BLOOD CELL COUNT(AUTO) 4.66 MIL/uL (4.5-6.0); WHITE BLOOD COUNT (AUTO) 6.7 K/uL (4.3-11.0)
[2017-01-06 06:44] LABS: CALCIUM, SERUM 9.1 mg/dL (8.5-10.1); CARBON DIOXIDE 31 mmol/L (21-32); CHLORIDE 104 mmol/L (98-107); CREATININE 1.2 mg/dL (0.6-1.3); GLUCOSE 144 mg/dL (74-106); PHOSPHORUS 2.7 mg/dL (2.5-4.9); POTASSIUM 3.5 mmol/L (3.5-5.1); SODIUM SERUM 142 mmol/L (136-145); UREA NITROGEN, BLOOD 16 mg/dL (7-18)
--- NOTE | 2017-01-06 06:54 | NUR ---
MS RN NOTES NO SIGNIFICANT CHANGE IN STATUS.NEGATIVE FOR ASPIRATION.IVF FLUID HELD FOR A FEW HOURS.PER PATIENT REQUEST.WILL ENDORSE TO DAY NURSE FOR IVANA.
--- NOTE | 2017-01-06 07:15 | NUR ---
MS RN OPENING NOTES RECEIVED PT. FROM NIGHTSHIFT NURSE IN STABLE CONDITION. PT IS A/O X4. NO SOB OR SIGNS OF DISTRESS NOTED. BREATHING IS EVEN AND UNLABORED. PT DENIES AND PAIN AT THIS TIME. PT. STATES THAT HE HAS BEEN ABLE TO TOLERATE HIS DIET WITHOUT ANY DIFFICULTY SWALLOWING AND CAN DRINK SMALL SIPS OF WATER AT A TIME. IV PRESENT ON RIGHT FA 24G PATENT AND INTACT. D5 1/2 NS INFUSION STOPPED AT THIS TIME PE PT'S REQUEST. WILL RESUME AFTER BREAKFAST. BED IN LOW LOCKED POSITION, SIDE RAILS UP X2, PT'S WALKER WITHIN EASY REACH, CALL LIGHT WITHIN REACH. WILL CONTINUE TO CLOSELY MONITOR.
[2017-01-06 08:00] VITALS: BP 143/73
[2017-01-06] MEDS ORDERED: PANT40TA2 PO (08:55)
[2017-01-06] MEDS: PREGABALIN 25 MG CAPSULE PO SCH (08:58)
[2017-01-06 08:59] VITALS: BP 143/73
[2017-01-06] MEDS: DILTIAZEM HCL CD 300 MG PO SCH (08:59)
[2017-01-06] MEDS: LISINOPRIL (20MG) 20 MG TABLET PO SCH (08:59)
[2017-01-06] MEDS: FINASTERIDE (5 MG) 5 MG TABLET PO SCH (09:00)
[2017-01-06] MEDS: HYDROCORTISONE 20 MG TABLET PO SCH (09:00)
[2017-01-06] MEDS: PANTOPRAZOLE 40 MG TABLET.DR PO SCH (09:00)
[2017-01-06] MEDS: PREZCOBIX PO SCH (10:17)
[2017-01-06] MEDS: TIVICAY 50 MG PO SCH (10:18)
--- NOTE | 2017-01-06 11:27 | NUR ---
MS DIGITAL MARKETING ANALYST NOTES PT. WAS DISCHARGED FROM UNIT IN STABLE CONDITION. ALL NEEDS WERE MET DURING SHIFT AND ORDERS CARRIED OUT ACCORDINGLY. ALL DISCHARGE INSTRUCTIONS WERE DISCUSSED IN DETAIL WITH PATIENT. PT VERBALIZED UNDERSTANDING. COPIES OF ALL DISCHARGE PAPERWORK WERE PLACED IN PT'S CHART. BELONGINGS FORM SIGNED BY PATIENT. PRESCRIPTION WAS ELECTRONICALLY SENT TO PT'S PREFERRED PHARMACY BY DR. FERRARO. PT LEFT WITH HIS HOME MEDICATIONS AND ALL OF HIS BELONGINGS. PT WAS SAFELY ESCORTED FROM THE HOSPITAL BY [facility] AND SAFELY LEFT IN A PRIVATE VEHICLE DRIVEN BY HIS PRIVATE CAREGIVER.
[2017-01-09] MEDS ORDERED: ERGOCALCIFEROL (VITAMIN D 2) 50,000 UNIT CAPSULE PO SCH (07:00)
== END 2017-01-06 11:05 | disposition home or self-care (01) | DRG 380 ==
LOC: ER 14:02 → MED 17:50
PROVIDERS: ADMIT Family Medicine; ATTEND Family Medicine
PROC: 0D748ZZ Dilation of Esophagogastric Junction, Via Natural or Artificial Opening Endoscopic (ICD-10-PCS; principal; 2017-01-05 11:13)
DX: K22.10 Ulcer of esophagus without bleeding (principal); N17.0 Acute kidney failure with tubular necrosis; I48.2 Chronic atrial fibrillation; D68.59 Other primary thrombophilia; G62.9 Polyneuropathy, unspecified; K22.2 Esophageal obstruction; J44.9 Chronic obstructive pulmonary disease, unspecified; I10 Essential (primary) hypertension; R13.10 Dysphagia, unspecified; E11.9 Type 2 diabetes mellitus without complications; N40.0 Benign prostatic hyperplasia without lower urinary tract symptoms; F41.9 Anxiety disorder, unspecified; Z86.718 Personal history of other venous thrombosis and embolism; G25.81 Restless legs syndrome; Z85.72 Personal history of non-Hodgkin lymphomas; Z79.84 Long term (current) use of oral hypoglycemic drugs
CPT/HCPCS: 36415; 71010-TC; 80048-TC; 80053-TC; 80076-TC; 83690-TC; 83735-TC; 84100-TC; 85025-TC; 87081-TC; 92526; 92611-TC; A4570; A4606; J2270; J2405; J2704; J3475; J3490; Z7610

== ENCOUNTER 2017-01-08 14:26 | Inpatient (IN) | payer OTHER ==
[~2017-01-08] VITALS: Ht 177.8 cm; Wt 74.8 kg
[~2017-01-08 14:26] MED LIST changes: +PANT40TA2 PO
--- NOTE | 2017-01-08 14:32 | NUR ---
PT BIB SON TO ER BD 12 VIA WHEELCHAIR. C/O BLE PAIN, LLE APPEARS RED AND SWOLEN. PT APPEARS LETHARGIC DOBBY LOOM WEAVER. SON STATES "HE TOOK OXY FOR HIS PAIN." GOWNED AND PLACED ON MONITOR. SATTING AT LOW 90'S. PLACED ON O2@2L.MIN VIA NASAL CANULA. AWAITING MD KAPOOR.
--- NOTE | 2017-01-08 14:53 | NUR ---
DR RINCON AT BEDSIDE FOR EVAL.
[2017-01-08] MEDS ORDERED: IV NS 0.9% 500 ML BAG IV ONE (15:00)
--- NOTE | 2017-01-08 15:11 | NUR ---
PT TO RADIOLOGY FOR HEAD CT SCAN VIA [facility].
[2017-01-08 15:16] LABS: BASOPHILS % (AUTO) 0.2 % (0.0-2.0); EOSINOPHILS # (AUTO) 0.2 /CMM (0.0-0.7); EOSINOPHILS % (AUTO) 1.6 % (0.0-6.0); HEMATOCRIT 41 % (39-51); HEMOGLOBIN 13.7 g/dL (13.5-17.5); LYMPHOCYTES # (AUTO) 1.3 /CMM (0.8-4.8); LYMPHOCYTES % (AUTO) 10.6 % (20.0-44.0); MEAN CORPUSCULAR HEMOGLOBIN 31 PG (26.0-33.0); MEAN CORPUSCULAR HGB CONC 33 g/dl (31.0-36.0); MEAN CORPUSCULAR VOLUME 93 fL (80-96); MONOCYTES # (AUTO) 0.8 /CMM (0.1-1.30); MONOCYTES % (AUTO) 6.4 % (2.0-12.0); NEUTROPHILS # (AUTO) 9.6 /CMM (1.8-8.9); NEUTROPHILS % (AUTO) 81.2 % (43.0-81.0); PLATELET COUNT (AUTO) 92 /CMM (150-450); RDW COEFFICIENT OF VARIATION 13.5 (11.5-15.0); RED BLOOD CELL COUNT(AUTO) 4.46 MIL/uL (4.5-6.0); WHITE BLOOD COUNT (AUTO) 11.9 K/uL (4.3-11.0)
--- NOTE | 2017-01-08 15:16 | NUR ---
CALLED NURSING OLIVE PITTER FOR TELE BED
--- NOTE | 2017-01-08 15:17 | NUR ---
IV LINE STARTED BLOOD DRAWN AND SENT TO LAB.
[2017-01-08 15:24] LABS: ALCOHOL, BLOOD < 3 mg/dL (0-0); CALCIUM, SERUM 8.7 mg/dL (8.5-10.1); CARBON DIOXIDE 23 mmol/L (21-32); CHLORIDE 102 mmol/L (98-107); CREATININE 3.5 mg/dL (0.6-1.3); GLUCOSE 72 mg/dL (74-106); POTASSIUM 4.5 mmol/L (3.5-5.1); SODIUM SERUM 136 mmol/L (136-145); UREA NITROGEN, BLOOD 45 mg/dL (7-18)
[2017-01-08 15:30] LABS: TROPONIN I < 0.017 ng/mL (0.00-0.056)
[2017-01-08 15:31] LABS: INR 0.97 (0.87-1.13); PROTHROMBIN TIME 10.1 SECS (9.5-12.7)
[2017-01-08 15:44] LABS: THYROID STIMULATING HORMONE 1.008 uIU/mL (0.358-3.74)
[2017-01-08] MEDS ORDERED: IV NS 0.9% 1,000 ML BAG IV ONE (16:30)
--- NOTE | 2017-01-08 17:18 | NUR ---
REPORT GIVEN TO MARINO. PT AWAITING TRANSFER TO FLOOR.
[2017-01-08 17:30] VITALS: BP 113/75
[2017-01-08] MEDS ORDERED: ONDANSETRON HCL/PF 4 MG/2 ML VIAL IVP PRN (17:30)
[2017-01-08] MEDS ORDERED: ACETAMINOPHEN 325 MG TABLET PO PRN (17:30)
[2017-01-08] MEDS ORDERED: MAG HYDROX/AL HYDROX/SIMETH 30 ML UDC PO PRN (17:30)
[2017-01-08] MEDS ORDERED: MAGNESIUM HYDROXIDE 30 ML UDC PO PRN (17:30)
[2017-01-08] MEDS ORDERED: Z GUARD REMEDY 2 OZ OINT TP PRN (17:30)
[2017-01-08] MEDS ORDERED: ZOLPIDEM TARTRATE 5 MG TABLET PO PRN (17:30)
--- NOTE | 2017-01-08 17:30 | NUR ---
PROCESSOR HELPER NOTES RECEIVED PT FROM E.R. STAFF VIA BRIAN, PT IS SLEEPY BUT EASILY AROUSABLE, ALERT AND ORIENTED X 2, ASSISTED TO BED, MADE COMFORTABLE, ROOM SET UP ORIENTATION PROVIDED, VERBALIZED UNDERSTANDING, ACCOMPANIED BY FRIEND JARETH, KEPT COMFORTABLE IN BED, AWAITING ADMISSION ORDERS FROM .
[2017-01-08] MEDS: IV D5/0.45 NACL 1,000 ML IV PRN (18:47)
--- NOTE | 2017-01-08 18:58 | NUR ---
POWER SEWING MACHINE OPERATOR NOTES PT ASLEEP, EASILY AROUSABLE, VITAL SIGNS STABLE, PT SEEN BY DR. MEEHAN, PLAN OF CARE DISCUSSED WITH PT, VERBALIZED UNDERSTANDING, STARTED IVF, SALINE LOCK AT RIGHT FOREARM INTACT AND PATENT, F/C IN PLACE, DRAINING WELL WITH CLEAR, YELLOW URINE, CALL LIGHT WITHIN REACH, PER MD, KEEP PT NPO TONIGHT, MAY START FEEDING AT BREAKFAST TIME, OK FOR REGULAR SOFT DIET, KEPT PT WARM AND COMFORTABLE IN BED, WILL ENDORSE TO TWO WAY RADIO INSTALLER NURSE FOR CONTINUITY OF CARE.
--- NOTE | 2017-01-08 19:25 | NUR ---
FURNACE CHECKER OPENING NOTES: RECEIVED PT ASLEEP. PT IS EASILY AROUSABLE. PT OPENED EYES FOR A SMALL PERIOD OF TIME AND RESPONDED AND WENT RIGHT BACK TO SLEEP. PT SEEMS TO BE LETHARGIC. PT ON 2LPM VIA NC AND IS TOLERATING WELL. PT IS ON TELE MONITOR. WAS ENDORSED FROM AM NURSE THAT PT IS TO BE KEPT NPO FOR TONIGHT AND WILL START FEEDING FOR BREAKFAST TIME PER DR. MEEHAN. PT HAS IV ON R FOREARM #20G AND IS PATENT AND INTACT AND CURRENTLY BEING INFUSED WITH D5 1/2 NS AT 125ML/HR. PT HAS REINA CATH AND IS ATTACHED TO DRAINAGE BAG. CALL LIGHT WITHIN PT'S REACH. BED KEPT IN LOW, LOCKED POSITION, AND SIDE RAILS X 2UP. WILL CONTINUE TO MONITOR PT.
[2017-01-08 20:00] VITALS: BP 113/79
[2017-01-08 20:30] VITALS: BP 113/79
[2017-01-09] VITALS (8 sets, daily range): BP systolic 121–156; BP diastolic 66–83
[2017-01-09] MEDS: IV D5/0.45 NACL 1,000 ML IV PRN ×2 (02:08→15:26)
[2017-01-09 06:30] LABS: BASOPHILS % (AUTO) 0.2 % (0.0-2.0); EOSINOPHILS # (AUTO) 0.1 /CMM (0.0-0.7); EOSINOPHILS % (AUTO) 1.7 % (0.0-6.0); HEMATOCRIT 41 % (39-51); HEMOGLOBIN 13.7 g/dL (13.5-17.5); LYMPHOCYTES # (AUTO) 1.1 /CMM (0.8-4.8); LYMPHOCYTES % (AUTO) 13.5 % (20.0-44.0); MEAN CORPUSCULAR HEMOGLOBIN 32 PG (26.0-33.0); MEAN CORPUSCULAR HGB CONC 34 g/dl (31.0-36.0); MEAN CORPUSCULAR VOLUME 94 fL (80-96); MONOCYTES # (AUTO) 0.6 /CMM (0.1-1.30); NEUTROPHILS # (AUTO) 6.2 /CMM (1.8-8.9); NEUTROPHILS % (AUTO) 77.6 % (43.0-81.0); PLATELET COUNT (AUTO) 76 /CMM (150-450); RDW COEFFICIENT OF VARIATION 14.6 (11.5-15.0); RED BLOOD CELL COUNT(AUTO) 4.35 MIL/uL (4.5-6.0)
--- NOTE | 2017-01-09 06:45 | NUR ---
CERTIFIED ORTHOTIST/PEDORTHIST CLOSING NOTES: ALL NEEDS WERE ATTENDED AND ANTICIPATED FOR. PT HAS BEEN ASLEEP THROUGHOUT MY SHIFT. PT IS EASILY AROUSABLE BUT WILL ONLY ANSWER IN RELATION TO THE QUESTION BUT WILL NOT OPEN EYES. PT APPEARS TO BE LETHARGIC THROUGHOUT SHIFT. PT IS ON 2LPM VIA NC AND IS TOLERATING WELL. PT IS ON TELE MONITOR AND IS SR 71. PT HAS IV ON R FOREARM #20G AND IS PATENT AND INTACT AND CURRENTLY BEING INFUSED WITH D5 1/2 NS AT 125ML/HR. PT HAS REINA CATH AND IS ATTACHED TO DRAINAGE BAG. OUTPUT WAS 4,000ML. CALL LIGHT WITHIN PT'S REACH. BED KEPT IN LOW, LOCKED POSITION, AND SIDE RAILS X 2UP. WILL ENDORSE TO AM NURSE FOR IVANA.
[2017-01-09 06:49] LABS: CHOLESTEROL 109 mg/dL (<200); HDL CHOLESTEROL 30 mg/dL (40-60); LDL 56 mg/dL (0-99); TRIGLYCERIDES 173 mg/dL (30-150)
[2017-01-09 06:50] LABS: ALANINE AMINOTRANSFERASE 32 U/L (12-78); ALKALINE PHOSPHATASE 46 U/L (46-116); ASPARTATE AMINOTRANSFERASE 36 U/L (15-37); BILIRUBIN,TOTAL 0.4 mg/dL (0.2-1.0); CALCIUM, SERUM 8.4 mg/dL (8.5-10.1); CARBON DIOXIDE 28 mmol/L (21-32); CHLORIDE 106 mmol/L (98-107); CREATININE 1.9 mg/dL (0.6-1.3); GLUCOSE 201 mg/dL (74-106); MAGNESIUM 2.2 mg/dL (1.8-2.4); PHOSPHORUS 2.9 mg/dL (2.5-4.9); POTASSIUM 3.7 mmol/L (3.5-5.1); SODIUM SERUM 141 mmol/L (136-145); TOTAL PROTEIN, SERUM 6.1 g/dL (6.4-8.2); UREA NITROGEN, BLOOD 30 mg/dL (7-18)
--- NOTE | 2017-01-09 07:20 | NUR ---
ms rn received on bed, lethargic, easily arousable,denies pain at this time, oriented to name, no s/s of pain at this time,all needs attended.
--- NOTE | 2017-01-09 09:00 | NUR ---
ms rn breakfast served, tolerated well.
--- NOTE | 2017-01-09 12:00 | NUR ---
ms rn was seen by dr. meghan biggs/ orders made and carried out.
--- NOTE | 2017-01-09 13:00 | NUR ---
ms thurman hayes catheter was d/c, will monitor for output.
[2017-01-09] MEDS: PREGABALIN 25 MG CAPSULE PO SCH (17:58)
[2017-01-09] MEDS: oxyCODONE IR immediate release 5 MG CAPSULE PO PRN (17:59)
[2017-01-09] MEDS ORDERED: HYDROCORTISONE 10 MG TABLET PO SCH (18:00)
[2017-01-09] MEDS ORDERED: DIAZEPAM 5 MG TABLET PO PRN (18:00)
--- NOTE | 2017-01-09 18:19 | NUR ---
MS RN DUE MEDS GIVEN,TOLERATED WELL. PAIN PILL GIVEN.
--- NOTE | 2017-01-09 19:25 | NUR ---
RN OPEN NOTES RECEIVED PATIENT AWAKE IN BED. A/O X3. NO SIGNS OF DISTRESS OR DISCOMFORT. BREATHING EVEN AND UNLABORED. IV ACCESS IN RFA WITH D5 1/2 NS INFUSING, PATENT AND INTACT, NO SIGNS OF REDNESS OR INFILTRATION. BED IN LOW LOCKED POSITION WITH SIDE RAILS X2. CALL LIGHT WITHIN REACH. WILL CONTINUE TO MONITOR.
[2017-01-10] MEDS: IV D5/0.45 NACL 1,000 ML IV PRN (01:59)
[2017-01-10] MEDS: oxyCODONE IR immediate release 5 MG CAPSULE PO PRN ×2 (04:40→10:45)
--- NOTE | 2017-01-10 07:43 | NUR ---
RN CLOSING NOTES PATIENT RESTING IN BED, EASILY AROUSABLE TO NAME. A/O X3. NO SIGNS OF DISTRESS OR DISCOMFORT. BREATHING EVEN AND UNLABORED. IV ACCESS IN RFA WITH D5 1/2 NS INFUSING, PATENT AND INTACT, NO SIGNS OF REDNESS OR INFILTRATION. ALL NEEDS MET. NO SIGNIFICANT CHANGES THROUGH THE NIGHT. BED IN LOW LOCKED POSITION WITH SIDE RAILS X2. CALL LIGHT WITHIN REACH. ENDORSED TO AM SHIFT FOR IVANA.
--- NOTE | 2017-01-10 07:47 | NUR ---
MS/RN OPENING NOTE PATIENT RECEIVED IN BED, AWAKE IN STABLE CONDITION. ALERT AND ORIENTED TIMES 3. NO SIGNS OF ACUTE DISTRESS. NO COMPLAIN OF PAIN OR DISCOMFORT. ALL NEEDS ATTENDED TO. CALL LIGHT WITHIN REACH. WILL CONTINUE TO MONITOR TO ENSURE SAFETY.
[2017-01-10 08:00] VITALS: BP 156/82
[2017-01-10] MEDS: PREGABALIN 25 MG CAPSULE PO SCH (08:31)
[2017-01-10] MEDS ORDERED: HYDROCORTISONE 10 MG TABLET PO SCH (09:00)
[2017-01-10] MEDS ORDERED: DILTIAZEM HCL CD 300 MG PO SCH (09:00)
[2017-01-10] MEDS ORDERED: LISINOPRIL (20MG) 20 MG TABLET PO SCH (09:00)
[2017-01-10] MEDS ORDERED: [UNRECOGNIZED DRUG - OTHER] PO SCH (09:00)
[2017-01-10] MEDS ORDERED: CELECOXIB 100 MG CAPSULE PO SCH (09:00)
[2017-01-10] MEDS ORDERED: APIXABAN 5 MG TABLET PO SCH (09:00)
[2017-01-10] MEDS ORDERED: DARUNAVIR ETHANOLATE 800 MG PO SCH (09:00)
[2017-01-10] MEDS ORDERED: METFORMIN 500 MG TABLET PO SCH (09:00)
[2017-01-10] MEDS ORDERED: FINASTERIDE (5 MG) 5 MG TABLET PO SCH (09:00)
[2017-01-10] MEDS ORDERED: HYDROCORTISONE 5 MG TABLET PO SCH ×2 (09:30)
[2017-01-10] MEDS ORDERED: hydrALAZINE HCL 25 MG TABLET PO PRN (14:00)
[2017-01-10] MEDS ORDERED: AMLODIPINE BESYLATE 10 MG TABLET PO SCH (14:00)
[2017-01-10 14:46] LABS: CALCIUM, SERUM 9.1 mg/dL (8.5-10.1); CARBON DIOXIDE 29 mmol/L (21-32); CHLORIDE 102 mmol/L (98-107); CREATININE 1.5 mg/dL (0.6-1.3); POTASSIUM 4.1 mmol/L (3.5-5.1); SODIUM SERUM 140 mmol/L (136-145); UREA NITROGEN, BLOOD 21 mg/dL (7-18)
[2017-01-10 14:52] LABS: BASOPHILS % (AUTO) 0.4 % (0.0-2.0); EOSINOPHILS # (AUTO) 0.2 /CMM (0.0-0.7); EOSINOPHILS % (AUTO) 2.8 % (0.0-6.0); HEMATOCRIT 42 % (39-51); HEMOGLOBIN 13.8 g/dL (13.5-17.5); LYMPHOCYTES # (AUTO) 1.5 /CMM (0.8-4.8); LYMPHOCYTES % (AUTO) 25.2 % (20.0-44.0); MEAN CORPUSCULAR HEMOGLOBIN 31 PG (26.0-33.0); MEAN CORPUSCULAR HGB CONC 33 g/dl (31.0-36.0); MEAN CORPUSCULAR VOLUME 94 fL (80-96); MONOCYTES # (AUTO) 0.8 /CMM (0.1-1.30); MONOCYTES % (AUTO) 12.8 % (2.0-12.0); NEUTROPHILS # (AUTO) 3.5 /CMM (1.8-8.9); NEUTROPHILS % (AUTO) 58.8 % (43.0-81.0); PLATELET COUNT (AUTO) 82 /CMM (150-450); RDW COEFFICIENT OF VARIATION 14.6 (11.5-15.0); RED BLOOD CELL COUNT(AUTO) 4.49 MIL/uL (4.5-6.0)
[2017-01-10 14:56] LABS: GLUCOSE 367 mg/dL (74-106)
[2017-01-10] MEDS ORDERED: BLOOD SUGAR DIAGNOSTIC 1 EACH STRIP VI SCH (15:00)
[2017-01-10] MEDS ORDERED: INSULIN REGULAR, HUMAN 100 UNIT/ML 3 ML VIAL SQ PRN (15:00)
[2017-01-10] MEDS ORDERED: *INSULIN REGULAR(HUMULIN R)HUM 100 UNIT/ML VIAL SQ PRN (15:00)
[2017-01-10] MEDS ORDERED: DEXTROSE 50%-WATER 50 ML DISP.SYRIN IV PRN (15:00)
[2017-01-10 16:00] VITALS: BP 128/66
--- NOTE | 2017-01-10 17:08 | NUR ---
MS/BIAS CUTTER HELPER PATIENT DISCHARGE HOME IN STABLE CONDITION ACCOMPANIED BY CAREGIVER. ALERT AND ORIENTED TIMES 4. NO SIGNS OF ACUTE DISTRESS. NO COMPLAIN OF PAIN OR DISCOMFORT. DISCHARGE EDUCATION PROVIDED AND MADE AWARE TO FOLLOW UP WITH PRIMARY PHYSICIAN. VERBALIZED UNDERSTANDING OF TEACHINGS AND PER PATIENT, HE ALREADY HAS APPOINTMENT SCHEDULE WITH HIS PCP FOR MONDAY. ALL NEEDS ATTENDED TO. IV LINE REMOVED AND NAME BAND REMOVED.
[2017-01-16] MEDS ORDERED: ERGOCALCIFEROL (VITAMIN D 2) 50,000 UNIT CAPSULE PO SCH (09:00)
== END 2017-01-10 17:32 | disposition home or self-care (01) | DRG 91 ==
LOC: ER 14:29 → TELE 16:28 → UNDOADMIN 16:28 → TELE 16:34 → MED 01-09 13:30
PROVIDERS: ADMIT Internal Medicine; ATTEND Internal Medicine
DX: G92 Toxic encephalopathy (principal); N17.0 Acute kidney failure with tubular necrosis; D68.59 Other primary thrombophilia; E11.40 Type 2 diabetes mellitus with diabetic neuropathy, unspecified; K22.10 Ulcer of esophagus without bleeding; I27.2 Other secondary pulmonary hypertension; I48.2 Chronic atrial fibrillation; I10 Essential (primary) hypertension; G25.81 Restless legs syndrome; N13.4 Hydroureter; J44.9 Chronic obstructive pulmonary disease, unspecified; K22.2 Esophageal obstruction; E11.9 Type 2 diabetes mellitus without complications; F32.9 Major depressive disorder, single episode, unspecified; F41.9 Anxiety disorder, unspecified; N40.0 Benign prostatic hyperplasia without lower urinary tract symptoms; Z98.1 Arthrodesis status; Z86.718 Personal history of other venous thrombosis and embolism; T40.2X5A Adverse effect of other opioids, initial encounter; Y92.009 Unspecified place in unspecified non-institutional (private) residence as the place of occurrence of the external cause; I70.202 Unspecified atherosclerosis of native arteries of extremities, left leg; G89.29 Other chronic pain; R13.10 Dysphagia, unspecified; Z85.72 Personal history of non-Hodgkin lymphomas
CPT/HCPCS: 36415; 70450-TC; 71010-TC; 71250-TC; 80048-TC; 80053-TC; 80061-TC; 80305; 83735-TC; 84100-TC; 84443-TC; 84484-TC; 85025-TC; 85730-TC; 87081-TC; A4606; G0480; J1815; J3490; J7030; J7040; Z7610

== ENCOUNTER 2017-04-02 15:53 | Inpatient (IN) | payer OTHER ==
[~2017-04-02] VITALS: Ht 182.9 cm; Wt 80.3 kg
--- NOTE | 2017-04-02 16:07 | NUR ---
BBRA FROM HOME FOR FEVER SINCE THIS AM. 103.6 RECTAL AT THIS TIME. PT AAO X2. PT PLACED IN GOWN AND MONITOR. MD AT BEDSIDE FOR EVAL.
[2017-04-02] MEDS ORDERED: ACETAMINOPHEN 650 MG/SUPP.RECT RC ONE ×3 (16:09→16:30)
[2017-04-02 16:26] LABS: BASOPHILS # (AUTO) 0.1 /CMM (0.0-0.2); BASOPHILS % (AUTO) 0.7 % (0.0-2.0); EOSINOPHILS # (AUTO) 0.1 /CMM (0.0-0.7); HEMATOCRIT 41 % (39-51); HEMOGLOBIN 13.5 g/dL (13.5-17.5); LYMPHOCYTES # (AUTO) 0.7 /CMM (0.8-4.8); LYMPHOCYTES % (AUTO) 5.8 % (20.0-44.0); MEAN CORPUSCULAR HEMOGLOBIN 30 PG (26.0-33.0); MEAN CORPUSCULAR HGB CONC 33 g/dl (31.0-36.0); MEAN CORPUSCULAR VOLUME 92 fL (80-96); MONOCYTES # (AUTO) 0.7 /CMM (0.1-1.30); MONOCYTES % (AUTO) 6.1 % (2.0-12.0); NEUTROPHILS # (AUTO) 10.1 /CMM (1.8-8.9); NEUTROPHILS % (AUTO) 86.4 % (43.0-81.0); PLATELET COUNT (AUTO) 92 /CMM (150-450); RDW COEFFICIENT OF VARIATION 14.4 (11.5-15.0); RED BLOOD CELL COUNT(AUTO) 4.49 MIL/uL (4.5-6.0); WHITE BLOOD COUNT (AUTO) 11.8 K/uL (4.3-11.0)
[2017-04-02 16:30] LABS: CALCIUM, SERUM 9.5 mg/dL (8.5-10.1); CARBON DIOXIDE 30 mmol/L (21-32); CHLORIDE 105 mmol/L (98-107); CREATININE 2.2 mg/dL (0.6-1.3); GLUCOSE 194 mg/dL (74-106); POTASSIUM 3.6 mmol/L (3.5-5.1); SODIUM SERUM 142 mmol/L (136-145); UREA NITROGEN, BLOOD 37 mg/dL (7-18)
[2017-04-02] MEDS ORDERED: IV NS 0.9% 1,000 ML BAG IV ONE (16:30)
[2017-04-02] MEDS ORDERED: MEROPENEM 500 MG in IV NS 0.9% 50 ML IV ONE (16:30)
[2017-04-02] MEDS ORDERED: VANCOMYCIN 1 GM in IV D5W 250 ML IV ONE (16:30)
[2017-04-02 16:38] LABS: TROPONIN I < 0.017 ng/mL (0.00-0.056)
[2017-04-02 16:40] LABS: APPEARANCE,URINE Clear (CLEAR); BILIRUBIN,URINE Negative (NEGATIVE); BLOOD, URINE Negative Ery/uL (NEGATIVE); COLOR,URINE Dark (YELLOW); KETONES,URINE Negative (NEGATIVE); LEUKOCYTE ESTERASE ,URINE Negative (NEGATIVE); NITRITE, URINE Negative (NEGATIVE); PH,URINE 7.5 (5.0-8.0); PROTEIN,URINE 30 mg/dl (NEGATIVE); UGLUCOSE Negative (NEGATIVE); UROBILINOGEN,URINE 0.2 EU/dL (0.2)
[2017-04-02 16:40] LABS: INR 0.98 (0.87-1.13); PROTHROMBIN TIME 10.2 SECS (9.5-12.7)
[2017-04-02 16:42] LABS: ALANINE AMINOTRANSFERASE 25 U/L (12-78); ALBUMIN 3.2 g/dL (3.4-5.0); ALKALINE PHOSPHATASE 50 U/L (46-116); ASPARTATE AMINOTRANSFERASE 23 U/L (15-37); BILIRUBIN,DIRECT 0.1 mg/dL (0.0-0.2); BILIRUBIN,TOTAL 0.5 mg/dL (0.2-1.0); TOTAL PROTEIN, SERUM 6.7 g/dL (6.4-8.2)
[2017-04-02 16:47] LABS: BACTERIA,URINE Rare /HPF (None Seen); RBC,URINE NONE SEEN /HPF (0-2); SQUAMOUS EPITHELIAL CELL,UR Few /HPF (None Seen); WBC,URINE NONE SEEN /HPF (0-3)
[2017-04-02] MEDS ORDERED: OSELTAMIVIR PHOSPHATE 75 MG CAPSULE PO ONE (17:00)
[2017-04-02] MEDS ORDERED: FLUD0.1T PO (17:09)
[2017-04-02] MEDS ORDERED: FURO40TA5 PO (17:09)
[2017-04-02] MEDS ORDERED: DOLU50TA PO (17:09)
[2017-04-02] MEDS ORDERED: OSELTAMIVIR PHOSPHATE 75 MG CAPSULE ONE (17:09)
[2017-04-02] MEDS ORDERED: AMLO10TA2 PO (17:09)
[2017-04-02] MEDS ORDERED: PRAV10TA40 PO (17:09)
[2017-04-02] MEDS ORDERED: DARU1TAB PO (17:09)
[2017-04-02] MEDS ORDERED: PANT40TA2 PO (17:09)
[2017-04-02] MEDS ORDERED: GLIM2TAB2 PO (17:09)
[2017-04-02] MEDS ORDERED: MYRBETRIQ PO (17:09)
[2017-04-02] MEDS ORDERED: CHLO50TA PO (17:09)
--- NOTE | 2017-04-02 17:09 | NUR ---
PAM- CAREGIVER [phone]
--- NOTE | 2017-04-02 17:13 | NUR ---
PT TO CT SCAN
--- NOTE | 2017-04-02 17:28 | NUR ---
Missy valentino in [facility] - 04/02/17 at 1734 by LAURIE TELE [phone]
--- NOTE | 2017-04-02 17:46 | NUR ---
TELE1/RN REPORT FROM ER - ROOM 108 RECEIVED REPORT FROM ER NURSE MARVIN FOR PT TO BE ADMITTED FOR SEPSIS UNDER THE CARE OF DR. MEEHAN. AWAITING FOR PT'S ARRIVAL.
[2017-04-02] MEDS: SULFAMETH/TRIMETH 800/160 MG 1 UDTAB TABLET PO SCH ×2 (18:26→21:00)
[2017-04-02] MEDS ORDERED: ACETAMINOPHEN 325 MG TABLET PO PRN (18:30)
[2017-04-02] MEDS ORDERED: Z GUARD REMEDY 2 OZ OINT TP PRN (18:30)
[2017-04-02] MEDS ORDERED: ZOLPIDEM TARTRATE 5 MG TABLET PO PRN (18:30)
[2017-04-02] MEDS ORDERED: ONDANSETRON HCL/PF 4 MG/2 ML VIAL IVP PRN (18:30)
[2017-04-02] MEDS ORDERED: MAG HYDROX/AL HYDROX/SIMETH 30 ML UDC PO PRN (18:30)
[2017-04-02] MEDS ORDERED: DIAZEPAM 5 MG TABLET PO PRN (18:30)
[2017-04-02] MEDS ORDERED: MAGNESIUM HYDROXIDE 30 ML UDC PO PRN (18:30)
--- NOTE | 2017-04-02 18:30 | NUR ---
TELE1/RN ADMITTED TO [facility] - ROOM 108 PT ARRIVED VIA GURNEY FROM ER, ACCOMPANIED BY ER NURSE MARVIN. PT IS LETHARGIC. PT PLACED ON 4L O2 VIA N/C SATURATING @ 96% , LUNG SOUNDS CLEAR. TELE BOX PLACED, SINUS RHYTHM, HR 89. IV SITES FLUSHED, PATENT WITH NO S/S OF INFECTION. REINA CATHETER INTACT WITH YELLOW URINE OUTPUT. VS SIGNS TAKEN. ADMITTING PROTOCOLS TO BE CONTINUED BY PM NURSE. CL WITHIN REACHED AND SAFETY MAINTAINED. Addendum: 04/02/17 at 1900 by STEVENSON LESTER RN ADDENDUM: PT ADMITTED FOR SEPSIS, UNDER THE CARE OF DR. MEEHAN.
[2017-04-02 18:45] VITALS: BP 102/54
[2017-04-02] MEDS ORDERED: FEE PK DOSING 1 MIN EA MC ONE (19:06)
--- NOTE | 2017-04-02 19:12 | NUR ---
TELE1/RN AM SHIFT END NOTES REPORT GIVEN TO PM NURSE TO CONTINUE CARE AND TO COMPLETE ADMISSION PROTOCOL. SAFETY MAINTAINED.
--- NOTE | 2017-04-02 19:40 | NUR ---
TELE-TD RN NOTE: PATIENT RESTING IN BED, NO ACUTE DISTRESS NOTED. BREATHING EVEN AND UNLABORED, NO SOB NOTED. IV TO RFA AND LAC IN PLACE. TELE READING SR 83. PER ADMIT ORDERS PATIENT IS TELE-TD, CHARGE NURSE, AZIZA INFORMED. REINA CATHETER IN PLACE, DRAINING CLEAR YELLOW URINE. BED LOCKED AND IN LOWEST POSITION, CALL LIGHT IN REACH, WILL CONTINUE TO MONITOR.
[2017-04-02 20:00] VITALS: BP 110/54
[2017-04-02] MEDS ORDERED: PIPERACILLIN /TAZOBACTAM 4.5 G in IV D5W 50 ML IV SCH (21:00)
[2017-04-02] MEDS ORDERED: SULFAMETH/TRIMETH 800/160 MG 1 UDTAB TABLET PO SCH (21:00)
[2017-04-02] MEDS: PIPERACILLIN /TAZOBACTAM 2.25 G in IV D5W 50 ML IV SCH (21:11)
[2017-04-02] MEDS: HYDROCODONE/APAP 5/325MG 1 EACH TABLET PO PRN (23:04)
--- NOTE | 2017-04-02 23:15 | NUR ---
TELE-TD RN NOTE: PATIENT COMPLAINS OF BLE PAIN 12/15, NORCO 5/325MG ORAL GIVEN PER MD ORDER. WILL CONTINUE TO MONITOR.
[2017-04-03 00:20] VITALS: BP 127/58
[2017-04-03] MEDS: PIPERACILLIN /TAZOBACTAM 2.25 G in IV D5W 50 ML IV SCH ×4 (03:03→21:16)
[2017-04-03 04:15] VITALS: BP 138/66
--- NOTE | 2017-04-03 06:10 | NUR ---
TELE-TD RN NOTE: PATIENT RESTING IN BED, NO ACUTE DISTRESS NOTED. BREATHING EVEN AND UNLABORED, NO SOB NOTED. IV TO RFA AND LAC IN PLACE. TELE READING SR 87. REINA CATHETER IN PLACE, DRAINED 1550ML OF CLEAR YELLOW URINE. BED LOCKED AND IN LOWEST POSITION, CALL LIGHT IN REACH, WILL ENDORSE TO DAY NURSE TO CONTINUE WITH PLAN OF CARE.
[2017-04-03 06:49] LABS: CHOLESTEROL 128 mg/dL (<200); HDL CHOLESTEROL 33 mg/dL (40-60); LDL 53 mg/dL (0-99); TRIGLYCERIDES 221 mg/dL (30-150)
[2017-04-03 06:56] LABS: ALANINE AMINOTRANSFERASE 27 U/L (12-78); ALBUMIN 2.6 g/dL (3.4-5.0); ALKALINE PHOSPHATASE 47 U/L (46-116); ASPARTATE AMINOTRANSFERASE 48 U/L (15-37); BILIRUBIN,TOTAL 0.6 mg/dL (0.2-1.0); CALCIUM, SERUM 9.1 mg/dL (8.5-10.1); CARBON DIOXIDE 32 mmol/L (21-32); CHLORIDE 108 mmol/L (98-107); CREATININE 1.7 mg/dL (0.6-1.3); GLUCOSE 151 mg/dL (74-106); MAGNESIUM 1.9 mg/dL (1.8-2.4); PHOSPHORUS 2.5 mg/dL (2.5-4.9); POTASSIUM 3.4 mmol/L (3.5-5.1); SODIUM SERUM 145 mmol/L (136-145); TOTAL PROTEIN, SERUM 6.1 g/dL (6.4-8.2); UREA NITROGEN, BLOOD 28 mg/dL (7-18)
--- NOTE | 2017-04-03 07:35 | NUR ---
NERIS RN INITIAL NOTE RN RECEIVED PATIENT RESTING IN BED, NO ACUTE DISTRESS NOTED. NO SOB NOTED BREATHING EVEN AND UNLABORED. PT HAS IV TO RFA AND LAC IN PLACE. PT ON TELE- SR AT THIS TIME . PT HAS REINA CATHETER IN PLACE, DRAINING CLEAR YELLOW URINE. BED LOCKED AND IN LOWEST POSITION, CALL LIGHT IN REACH, WILL CONTINUE TO MONITOR THROUGHOUT THE SHIFT .
[2017-04-03 07:45] LABS: EOSINOPHILS # (AUTO) 0.1 /CMM (0.0-0.7); EOSINOPHILS % (AUTO) 0.8 % (0.0-6.0); HEMATOCRIT 37 % (39-51); HEMOGLOBIN 12.4 g/dL (13.5-17.5); LYMPHOCYTES # (AUTO) 1.3 /CMM (0.8-4.8); LYMPHOCYTES % (AUTO) 8.6 % (20.0-44.0); MEAN CORPUSCULAR HEMOGLOBIN 31 PG (26.0-33.0); MEAN CORPUSCULAR HGB CONC 34 g/dl (31.0-36.0); MEAN CORPUSCULAR VOLUME 91 fL (80-96); MONOCYTES # (AUTO) 1.2 /CMM (0.1-1.30); MONOCYTES % (AUTO) 8.2 % (2.0-12.0); NEUTROPHILS # (AUTO) 12.6 /CMM (1.8-8.9); NEUTROPHILS % (AUTO) 82.4 % (43.0-81.0); PLATELET COUNT (AUTO) 89 /CMM (150-450); RDW COEFFICIENT OF VARIATION 14.4 (11.5-15.0); RED BLOOD CELL COUNT(AUTO) 4.08 MIL/uL (4.5-6.0); WHITE BLOOD COUNT (AUTO) 15.2 K/uL (4.3-11.0)
[2017-04-03 08:00] VITALS: BP 112/82
[2017-04-03] MEDS: FLUDROCORTISONE 0.1 MG TABLET PO SCH (08:59)
[2017-04-03] MEDS: PREGABALIN 25 MG CAPSULE PO SCH ×2 (08:59→16:24)
[2017-04-03] MEDS: PANTOPRAZOLE 40 MG TABLET.DR PO SCH ×2 (08:59→16:24)
[2017-04-03] MEDS ORDERED: METFORMIN 500 MG TABLET PO SCH ×2 (09:00→17:00)
[2017-04-03] MEDS: CELECOXIB 100 MG CAPSULE PO SCH (09:00)
[2017-04-03] MEDS ORDERED: HYDROCORTISONE 10 MG TABLET PO SCH (09:00)
[2017-04-03] MEDS: GLIMEPIRIDE 1 MG TABLET PO SCH ×2 (09:00→16:24)
[2017-04-03] MEDS: SULFAMETH/TRIMETH 800/160 MG 1 UDTAB TABLET PO SCH (09:00)
[2017-04-03] MEDS: FINASTERIDE (5 MG) 5 MG TABLET PO SCH (09:00)
[2017-04-03 09:59] LABS: EOSINOPHILS % (MANUAL) 2 % (0-4); LYMPHOCYTES % (MANUAL) 5 % (16-48); MONOCYTES % (MANUAL) 2 % (0-11.0); NEUTROPHILS % (MANUAL) 91 (42-76)
[2017-04-03] MEDS ORDERED: POTASSIUM CHLORIDE 20 MEQ TAB.PRT.SR PO ONE (10:00)
[2017-04-03] MEDS: VANCOMYCIN 1 GM in IV D5W 250 ML IV SCH (10:22)
--- NOTE | 2017-04-03 10:32 | NUR ---
RN NOTE PATIENT CONTACTED PATIENTS SALESPERSON FLYING SQUAD IN REGARDS TO BRING PATIENTS HOME MEDICATION , SALESPERSON FLYING SQUAD ACKNOWLEDGED , PHARMACY HAS YET TO ACKNOWLEDGE 0900 AM MEDICATIONS STATES THEY WOULD LIKE TO REVIEW ALL MEDICATIONS THEN THEY WILL ACKNOWLEDGED THE MEDICATION RN WILL CONTINUE TO MONITOR
[2017-04-03] MEDS: HYDROCODONE/APAP 5/325MG 1 EACH TABLET PO PRN (10:48)
[2017-04-03 12:00] VITALS: BP 147/69
[2017-04-03] MEDS: oxyCODONE IR immediate release 5 MG CAPSULE PO PRN ×2 (12:50→19:16)
[2017-04-03] MEDS: MYRBETRIQ 50 MG PO SCH (14:24)
[2017-04-03] MEDS: DARUNAVIR PO SCH (14:24)
[2017-04-03] MEDS: COBICISTAT PO SCH (14:24)
[2017-04-03] MEDS: TIVICAY PO SCH (14:25)
[2017-04-03] MEDS: FUROSEMIDE 40 MG TABLET PO SCH ×4 (14:31→21:14)
[2017-04-03 16:00] VITALS: BP_SYST 126; BP_SYST 136; BP_DIAS 61; BP_DIAS 84
[2017-04-03] MEDS: HYDROCORTISONE 5 MG TABLET PO SCH (16:23)
[2017-04-03] MEDS: HOME MED - ELIQUIS 5MG PO SCH (16:24)
--- NOTE | 2017-04-03 18:20 | NUR ---
RN CLOSING NOTE PATIENT STABLE THROUGHOUT THE DAY, WORKED WITH PHYSICAL THERAPY , AND AMBULATES TO THE CHAIR WITH MINIMAL ASSISTANCE PATIENT IN CONTINENT OF STOOL REIAN CATH IN PLACE , PATIENT REFUSED PM LASIX STATES HE TAKES THIS MEDICATION WITH KCL , RN NOTIFIED PHARMACY IN REGARDS TO TO THIS , PATIENT COMPLAINS OF LOWER PACK PAIN THROUGHOUT THE DAY. MEDICATION ADMINISTERED PATIENT REQUESTED PAIN MEDICATION AT 6PM THEN REQUEST NORCO AND TYLENOL , STATING HE WILL WAIT 1 HR FOR OXYCONTIN RN ACKNOWLEDGES PATIENT WISHES , PATIENT ABLE TO HELP WITH ADLS RN WILL CONTINUE TO MONITOR FOR SAFETY , PATIENT CARE WILL BE ENDORSED TO PM RN
--- NOTE | 2017-04-03 19:10 | NUR ---
RN OPENING NOTES PATIENT A/A/O X4, ABLE TO MAKE NEEDS KNOWN. BREATHING EVEN & UNLABORED, ON O2 4L VIA NC. DENIES SOB OR DIFFICULTY BREATHING. PULSES PRESENT. RIGHT FOREARM IV #16 & LEFT AC IV #18 INTACT & PATENT W/ DRESSING CDI. C/O SOME DISCOMFORT IN RIGHT LOWER LEG W/ SOME REDNESS & WARMTH NOTED. REINA CATH INTACT & DRAINING YELLOW URINE, NO SIGNS OF LEAKING NOTED. SAFETY MEASURES IN PLACE W/ SIDE RAILS UP, BED LOCKED & IN LOWEST POSITION, BED ALARM ON & CALL LIGHT WITHIN REACH. WILL CONTINUE TO MONITOR.
[2017-04-03 20:00] VITALS: BP 136/70
--- NOTE | 2017-04-03 20:30 | NUR ---
RN NOTES PATIENT SEEN & EXAMINED BY [employer] OFFICIAL. RIGHT LEG EXAMINED D/T PAIN, REDNESS & WARMTH. NEW ORDERS RECEIVED FOR LEVAQUIN & VENOUS DOPPLER OF RIGHT LOWER LEG.
[2017-04-03] MEDS: LEVOFLOXACIN (500MG) 500 MG TABLET PO SCH (21:14)
[2017-04-04] MEDS: PIPERACILLIN /TAZOBACTAM 2.25 G in IV D5W 50 ML IV SCH ×2 (02:36→09:10)
[2017-04-04] MEDS: VANCOMYCIN 1 GM in IV D5W 250 ML IV SCH ×2 (03:56→20:21)
[2017-04-04 04:00] VITALS: BP 132/76
--- NOTE | 2017-04-04 04:24 | NUR ---
RN NOTES PATIENT'S IV ON LEFT AC DC'D D/T TO INFILTRATION. ICE APPLIED & EXTREMITY ELEVATED. WILL CONTINUE TO MONITOR.
[2017-04-04] MEDS: oxyCODONE IR immediate release 5 MG CAPSULE PO PRN ×2 (04:48→19:45)
[2017-04-04 06:42] LABS: CALCIUM, SERUM 9.2 mg/dL (8.5-10.1); CARBON DIOXIDE 31 mmol/L (21-32); CHLORIDE 104 mmol/L (98-107); CREATININE 1.7 mg/dL (0.6-1.3); GLUCOSE 322 mg/dL (74-106); POTASSIUM 3.2 mmol/L (3.5-5.1); SODIUM SERUM 140 mmol/L (136-145); UREA NITROGEN, BLOOD 24 mg/dL (7-18)
[2017-04-04 08:00] VITALS: BP 120/66
--- NOTE | 2017-04-04 08:00 | NUR ---
ROAD HOGGER OPERATOR INITIAL NOTES PATIENT AWAKE IN BED, AOX4, NO SIGNS OF DISTRESS, ON NC 3L, FC TO GRAVITY, R CALF REDNESS AND WARMTH NOTED, IV RFA 16G, SL, PATENT AND CLEAN, ABLE TO GET UP TO CHAIR WITH ASSISTANCE, BED IN LOW AND LOCKED POSITION, CALL LIGHT WITHIN REACH, WILL CONTINUE TO MONITOR.
[2017-04-04] MEDS: PREGABALIN 25 MG CAPSULE PO SCH ×2 (09:10→16:48)
[2017-04-04] MEDS: HOME MED - ELIQUIS 5MG PO SCH ×2 (09:10→16:51)
[2017-04-04] MEDS: DARUNAVIR PO SCH (09:11)
[2017-04-04] MEDS: COBICISTAT PO SCH (09:11)
[2017-04-04] MEDS: FINASTERIDE (5 MG) 5 MG TABLET PO SCH (09:12)
[2017-04-04] MEDS: CELECOXIB 100 MG CAPSULE PO SCH (09:12)
[2017-04-04] MEDS: MYRBETRIQ 50 MG PO SCH (09:12)
[2017-04-04] MEDS: HYDROCORTISONE 5 MG TABLET PO SCH ×2 (09:12→16:48)
[2017-04-04] MEDS: ATORVASTATIN 10 MG TABLET PO SCH (09:13)
[2017-04-04] MEDS: GLIMEPIRIDE 1 MG TABLET PO SCH ×2 (09:13→16:48)
[2017-04-04] MEDS: PANTOPRAZOLE 40 MG TABLET.DR PO SCH ×2 (09:13→16:49)
[2017-04-04] MEDS: TIVICAY PO SCH (09:14)
[2017-04-04] MEDS: FLUDROCORTISONE 0.1 MG TABLET PO SCH (09:14)
--- NOTE | 2017-04-04 09:31 | NUR ---
PT. HAS HIGH CREATININE FOR CT LUMBAR WITH CONTRAST. RN WILL CLARIFY ORDER WITH MD IF CT CAN BE DONE WITHOUT CONTRAST.
[2017-04-04] MEDS ORDERED: POTASSIUM CHLORIDE 10 MEQ TABLET.SA PO ONE (10:00)
[2017-04-04 12:00] VITALS: BP 129/75
[2017-04-04] MEDS ORDERED: DEXTROSE 50%-WATER 50 ML DISP.SYRIN IV PRN (12:00)
[2017-04-04] MEDS: BLOOD SUGAR DIAGNOSTIC 1 EACH STRIP IN SCH ×3 (12:27→22:25)
--- NOTE | 2017-04-04 12:36 | NUR ---
MAINTENANCE COORDINATOR NOTES PATIENT HAS BLOOD SUGAR 432, DR LARES MADE AWARE, AWAITING FURTHER ORDERS.
--- NOTE | 2017-04-04 13:00 | NUR ---
EMERGENCY MAN NOTES 10 UNITS OF INSULIN GIVEN, CHARGE NURSE AWARE AND MD NOTIFIED.
[2017-04-04] MEDS: INSULIN REGULAR, HUMAN 100 UNIT/ML 3 ML VIAL SQ PRN ×3 (13:09→22:31)
[2017-04-04 14:25] LABS: *CD4/CD8 RATIO 0.32 (0.92-3.72)
--- NOTE | 2017-04-04 14:25 | NUR ---
BULL BUCKER NOTES PATIENT RECEIVED VENOUS DOPPLER OF RIGHT CALF, DVT POSITIVE PARTIALLY OCCLUSIVE CLOT IN RIGHT LEG PER RADIOLOGY MD, DR. LARES MADE AWARE.
[2017-04-04] MEDS: ZOSYN IVPB 3.375 G in IV D5W 50ml IV SCH ×2 (15:38→20:20)
[2017-04-04 16:00] VITALS: BP_SYST 120; BP_SYST 137; BP_DIAS 66; BP_DIAS 73
[2017-04-04] MEDS: FUROSEMIDE 40 MG TABLET PO SCH (16:48)
[2017-04-04] MEDS: INSULIN ASPART HUMALOG/NOVOLOG 100 UNIT/ML CARTRIDGE SQ SCH (16:59)
[2017-04-04] MEDS ORDERED: RIVAROXABAN 15 MG TABLET PO SCH (17:00)
--- NOTE | 2017-04-04 18:17 | NUR ---
JUNIOR ENGINEER NOTES PATIENT LEFT UNIT FOR CT OF LUMBAR SPINE, ALERT AND VITALS WITHIN NORMAL LIMITS.
--- NOTE | 2017-04-04 19:04 | NUR ---
ASW SPECIALIST END NOTES PATIENT RESTING IN BED NO SIGNS OF DISTRESS, WILL ENDORSE TO CERTIFIED ADAPTED PHYSICAL EDUCATOR TO MONITOR BLOOD SUGAR, ALL NEEDS MET.
[2017-04-04 20:00] VITALS: BP 136/70
[2017-04-04 20:06] LABS: *ABSOLUTE CD 4 HELPER 399 /uL (359-1519); *ABSOLUTE CD 8 SUPPRESSOR 1235 /uL (109-897); *BASOS 0 % (Not Estab.); *COMMENTS Note: (.); *EOS 1 % (Not Estab.); *EOS, ABSOLUTE 0.1 x10E3/uL (0.0-0.4); *HCT 38.5 % (37.5-51.0); *HGB 12.5 g/dL (12.6-17.7); *IMMATURE GRANULOCYTES 0 % (Not Estab.); *LYMPHOCYTES 12 % (Not Estab.); *LYMPHS, ABSOLUTE 1.9 x10E3/uL (0.7-3.1); *MCH 30.3 pg (26.6-33.0); *MCHC 32.5 g/dL (31.5-35.7); *MCV 93 fL (79-97); *MONOCYTES 9 % (Not Estab.); *MONOS, ABSOLUTE 1.4 x10E3/uL (0.1-0.9); *NEUTROPHILS 78 % (Not Estab.); *NEUTROPHILS, ABSOLUTE 12.5 x10E3/uL (1.4-7.0); *PLT 93 x10E3/uL (150-379); *RBC 4.13 x10E6/uL (4.14-5.80); *RDW 15.7 % (12.3-15.4)
[2017-04-04 20:15] VITALS: BP 136/70
[2017-04-04] MEDS: LEVOFLOXACIN (500MG) 500 MG TABLET PO SCH (20:20)
[2017-04-04] MEDS: INSULIN DETEMIR 100 UNIT/ML CARTRIDGE SQ SCH (22:30)
[2017-04-05] MEDS: ZOSYN IVPB 3.375 G in IV D5W 50ml IV SCH ×4 (03:01→20:40)
[2017-04-05 04:00] VITALS: BP 134/71
[2017-04-05] MEDS: oxyCODONE IR immediate release 5 MG CAPSULE PO PRN ×2 (04:51→17:01)
[2017-04-05 06:34] LABS: BASOPHILS % (AUTO) 0.2 % (0.0-2.0); EOSINOPHILS # (AUTO) 0.2 /CMM (0.0-0.7); EOSINOPHILS % (AUTO) 2.2 % (0.0-6.0); HEMATOCRIT 38 % (39-51); HEMOGLOBIN 12.3 g/dL (13.5-17.5); LYMPHOCYTES # (AUTO) 0.9 /CMM (0.8-4.8); LYMPHOCYTES % (AUTO) 12.6 % (20.0-44.0); MEAN CORPUSCULAR HEMOGLOBIN 30 PG (26.0-33.0); MEAN CORPUSCULAR HGB CONC 33 g/dl (31.0-36.0); MEAN CORPUSCULAR VOLUME 93 fL (80-96); MONOCYTES # (AUTO) 0.5 /CMM (0.1-1.30); MONOCYTES % (AUTO) 7.7 % (2.0-12.0); NEUTROPHILS # (AUTO) 5.5 /CMM (1.8-8.9); NEUTROPHILS % (AUTO) 77.3 % (43.0-81.0); PLATELET COUNT (AUTO) 92 /CMM (150-450); RDW COEFFICIENT OF VARIATION 15.7 (11.5-15.0); RED BLOOD CELL COUNT(AUTO) 4.08 MIL/uL (4.5-6.0); WHITE BLOOD COUNT (AUTO) 7.1 K/uL (4.3-11.0)
[2017-04-05 07:05] LABS: CALCIUM, SERUM 9.7 mg/dL (8.5-10.1); CARBON DIOXIDE 33 mmol/L (21-32); CHLORIDE 102 mmol/L (98-107); CREATININE 1.8 mg/dL (0.6-1.3); GLUCOSE 257 mg/dL (74-106); MAGNESIUM 2.1 mg/dL (1.8-2.4); PHOSPHORUS 2.7 mg/dL (2.5-4.9); POTASSIUM 3.1 mmol/L (3.5-5.1); SODIUM SERUM 142 mmol/L (136-145); UREA NITROGEN, BLOOD 22 mg/dL (7-18)
--- NOTE | 2017-04-05 07:30 | NUR ---
CONTROL OFFICER INITIAL NOTES PATIENT AWAKE IN BED, AOX4, NO SIGNS OF DISTRESS, NO CO OF PAIN AT THIS TIME, ON NC 3L, FC TO GRAVITY, R CALF REDNESS AND WARMTH NOTED, IV RFA 20G, PATENT AND CLEAN, ABLE TO GET UP TO CHAIR WITH ASSISTANCE, BED IN LOW AND LOCKED POSITION, CALL LIGHT WITHIN REACH, WILL CONTINUE TO MONITOR.
[2017-04-05] MEDS: BLOOD SUGAR DIAGNOSTIC 1 EACH STRIP IN SCH ×4 (07:37→22:33)
[2017-04-05] MEDS: INSULIN ASPART HUMALOG/NOVOLOG 100 UNIT/ML CARTRIDGE SQ SCH ×3 (07:39→17:05)
[2017-04-05 08:00] VITALS: BP 142/72
[2017-04-05] MEDS: INSULIN REGULAR, HUMAN 100 UNIT/ML 3 ML VIAL SQ PRN ×4 (08:14→22:37)
[2017-04-05] MEDS: HYDROCORTISONE 5 MG TABLET PO SCH ×2 (09:33→16:28)
[2017-04-05] MEDS: PREGABALIN 25 MG CAPSULE PO SCH ×2 (09:33→16:28)
[2017-04-05] MEDS: MYRBETRIQ 50 MG PO SCH (09:34)
[2017-04-05] MEDS: FUROSEMIDE 40 MG TABLET PO SCH (09:34)
[2017-04-05] MEDS: PANTOPRAZOLE 40 MG TABLET.DR PO SCH ×2 (09:34→16:28)
[2017-04-05] MEDS: FINASTERIDE (5 MG) 5 MG TABLET PO SCH (09:34)
[2017-04-05] MEDS: ATORVASTATIN 10 MG TABLET PO SCH (09:34)
[2017-04-05] MEDS: GLIMEPIRIDE 1 MG TABLET PO SCH ×2 (09:34→16:28)
[2017-04-05] MEDS: FLUDROCORTISONE 0.1 MG TABLET PO SCH (09:34)
[2017-04-05] MEDS: CELECOXIB 100 MG CAPSULE PO SCH (09:34)
[2017-04-05] MEDS: COBICISTAT PO SCH (09:35)
[2017-04-05] MEDS: TIVICAY PO SCH (09:35)
[2017-04-05] MEDS: DARUNAVIR PO SCH (09:35)
[2017-04-05] MEDS: POTASSIUM CHLORIDE 10 MEQ TABLET.SA PO SCH ×3 (10:47→14:05)
[2017-04-05] MEDS: HOME MED - ELIQUIS 5MG PO SCH ×2 (10:47→16:27)
[2017-04-05 14:00] VITALS: BP 142/67
[2017-04-05] MEDS ORDERED: POTASSIUM CHLORIDE 10 MEQ TABLET.SA PO SCH (14:15)
--- NOTE | 2017-04-05 15:52 | NUR ---
MOLDER SWEEP NOTES NO VANCOMYCIN AVAILABLE AT THE [facility] AWAITING VANCO TROUGH LEVELS
[2017-04-05 16:00] VITALS: BP 142/67
[2017-04-05] MEDS: VANCOMYCIN 1 GM in IV D5W 250 ML IV SCH (16:27)
--- NOTE | 2017-04-05 19:00 | NUR ---
LICENSED SURVEYOR END NOTES PATIENT RESTING IN BED NO SIGNS OF DISTRESS, ALL NEEDS MET WILL ENDORSE TO SNOW TECHNICIAN FOR CONTINUITY OF CARE.
--- NOTE | 2017-04-05 19:30 | NUR ---
MS/RN NOTES PT RECEIVED AWAKE, SITTING UP IN BED. A/OX4. ON 3L O2 VIA NC, BREATHING EVEN AND UNLABORED. NO APPARENT DISTRESS NOTED. DENIES PAIN. REINA IN PLACE AND DRAINING TO GRAVITY. IV TO RAC PATENT AND INTACT. BED IN LOW/LOCKED POSITION WITH CALL LIGHT IN REACH. SIDE RAILS UPX2. WILL CONTINUE TO MONITOR
[2017-04-05 20:00] VITALS: BP 143/80
[2017-04-05] MEDS: LEVOFLOXACIN (500MG) 500 MG TABLET PO SCH (20:39)
[2017-04-05] MEDS: INSULIN DETEMIR 100 UNIT/ML CARTRIDGE SQ SCH (22:37)
[2017-04-06] MEDS: ZOSYN IVPB 3.375 G in IV D5W 50ml IV SCH ×3 (02:43→16:04)
[2017-04-06] MEDS: oxyCODONE IR immediate release 5 MG CAPSULE PO PRN ×2 (02:43→11:57)
--- NOTE | 2017-04-06 02:57 | NUR ---
JONATHAN NOTES PT COMPLAINING OF PAIN TO RIGHT FOOT. PULLED NORCO FROM PYXIS AND OPENED FROM PACKAGING. PT REFUSED AND SAID NORCO DOES NOT HELP, ASKING FOR OXY INSTEAD. UNABLE TO WASTE NORCO IN PYXIS. JONATHAN COOL TRIED TO HELP ME WASTE BUT THERE IS NO MEDICATION LISTED TO WASTE. WILL NOTIFY PHARMACY AND WASTE ACCORDINGLY Addendum: 04/06/17 at 0730 by THOMAS DUTTON RN JONATHAN BORREGO WITNESSED NORCO WASTE IN PYXIS VIA MISCELLANEOUS WASTE OPTION.
[2017-04-06 04:00] VITALS: BP 132/76
[2017-04-06] MEDS: VANCOMYCIN 1 GM in IV D5W 250 ML IV SCH ×2 (04:06→17:24)
--- NOTE | 2017-04-06 06:41 | NUR ---
RN CLOSING NOTES PT AWAKE RESTING COMFORTABLY IN BED. ON 4L O2 VIA NC, BREATHING EVEN AND UNLABORED. NO SOB, PAIN OR APPARENT DISTRESS AT THIS TIME. SOB NOTED ON MINIMAL EXERTION. RFA IV PATENT AND INTACT. REINA IN PLACE AND DRAINING TO GRAVITY. PAIN MANAGED DURING SHIFT. KEPT COMFORTABLE AND ALL NEEDS MET. BED IN LOW/LOCKED POSITION WITH CALL LIGHT IN REACH. SIDE RAILS UPX2. WILL ENDORSE TO AM SHIFT IVANA.
[2017-04-06 06:48] LABS: BASOPHILS % (AUTO) 0.1 % (0.0-2.0); EOSINOPHILS # (AUTO) 0.2 /CMM (0.0-0.7); EOSINOPHILS % (AUTO) 4.1 % (0.0-6.0); HEMATOCRIT 38 % (39-51); HEMOGLOBIN 12.5 g/dL (13.5-17.5); LYMPHOCYTES # (AUTO) 0.9 /CMM (0.8-4.8); LYMPHOCYTES % (AUTO) 17.8 % (20.0-44.0); MEAN CORPUSCULAR HEMOGLOBIN 31 PG (26.0-33.0); MEAN CORPUSCULAR HGB CONC 33 g/dl (31.0-36.0); MEAN CORPUSCULAR VOLUME 92 fL (80-96); MONOCYTES # (AUTO) 0.5 /CMM (0.1-1.30); MONOCYTES % (AUTO) 10.2 % (2.0-12.0); NEUTROPHILS # (AUTO) 3.3 /CMM (1.8-8.9); NEUTROPHILS % (AUTO) 67.8 % (43.0-81.0); PLATELET COUNT (AUTO) 83 /CMM (150-450); RDW COEFFICIENT OF VARIATION 15.6 (11.5-15.0); RED BLOOD CELL COUNT(AUTO) 4.09 MIL/uL (4.5-6.0); WHITE BLOOD COUNT (AUTO) 4.9 K/uL (4.3-11.0)
[2017-04-06 07:13] LABS: CALCIUM, SERUM 9.7 mg/dL (8.5-10.1); CARBON DIOXIDE 32 mmol/L (21-32); CHLORIDE 103 mmol/L (98-107); CREATININE 1.7 mg/dL (0.6-1.3); GLUCOSE 225 mg/dL (74-106); MAGNESIUM 2.1 mg/dL (1.8-2.4); PHOSPHORUS 3.2 mg/dL (2.5-4.9); POTASSIUM 3.2 mmol/L (3.5-5.1); SODIUM SERUM 142 mmol/L (136-145); UREA NITROGEN, BLOOD 24 mg/dL (7-18)
--- NOTE | 2017-04-06 07:20 | NUR ---
MS RN OPENING NOTES RECEIVED PT FROM NIGHTSHIFT NURSE IN STABLE CONDITION. PT IS A/O X4. NO SOB OR SIGNS OF DISTRESS NOTED. BREATHING IS EVEN AND UNLABORED. PT DENIES ANY PAIN AT THIS TIME. REINA CATHETER NOTED TO BE DRAINING CLEAR YELLOW URINE. CATHETER IS CLEAN AND INTACT. IV NOTED ON LEFT FA 20G. NO REDNESS OR SIGNS OF INFILTRATION NOTED. BED IN LOW LOCKED POSITION, SIDE RAILS UP X2, CALL LIGHT WITHIN REACH. WILL CONTINUE TO MONITOR
[2017-04-06] MEDS: BLOOD SUGAR DIAGNOSTIC 1 EACH STRIP IN SCH ×3 (08:30→17:43)
[2017-04-06] MEDS: INSULIN REGULAR, HUMAN 100 UNIT/ML 3 ML VIAL SQ PRN ×3 (08:34→17:50)
[2017-04-06] MEDS: INSULIN ASPART HUMALOG/NOVOLOG 100 UNIT/ML CARTRIDGE SQ SCH ×3 (08:38→17:50)
[2017-04-06] MEDS ORDERED: FUROSEMIDE 40 MG TABLET PO SCH (09:00)
[2017-04-06] MEDS: GLIMEPIRIDE 1 MG TABLET PO SCH ×2 (09:29→17:44)
[2017-04-06] MEDS: PREGABALIN 25 MG CAPSULE PO SCH ×2 (09:30→17:43)
[2017-04-06] MEDS: HYDROCORTISONE 5 MG TABLET PO SCH ×2 (09:30→17:44)
[2017-04-06] MEDS: PANTOPRAZOLE 40 MG TABLET.DR PO SCH ×2 (09:31→17:43)
[2017-04-06] MEDS: FLUDROCORTISONE 0.1 MG TABLET PO SCH (09:31)
[2017-04-06] MEDS: ATORVASTATIN 10 MG TABLET PO SCH (09:31)
[2017-04-06] MEDS: FINASTERIDE (5 MG) 5 MG TABLET PO SCH (09:31)
[2017-04-06] MEDS: DARUNAVIR PO SCH (09:32)
[2017-04-06] MEDS: COBICISTAT PO SCH (09:32)
[2017-04-06] MEDS: MYRBETRIQ 50 MG PO SCH (09:32)
[2017-04-06] MEDS: HOME MED - ELIQUIS 5MG PO SCH ×2 (09:32→17:42)
[2017-04-06] MEDS: TIVICAY PO SCH (09:32)
[2017-04-06 09:39] LABS: EOSINOPHILS % (MANUAL) 6 % (0-4); LYMPHOCYTES % (MANUAL) 17 % (16-48); MONOCYTES % (MANUAL) 10 % (0-11.0); NEUTROPHILS % (MANUAL) 67 (42-76)
[2017-04-06] MEDS ORDERED: POTASSIUM CHLORIDE 10 MEQ TABLET.SA PO ONE (11:00)
[2017-04-06 12:00] VITALS: BP 136/72
[2017-04-06] MEDS ORDERED: LEVOFLOXACIN (500MG) 500 MG TABLET PO ONE (17:30)
--- NOTE | 2017-04-06 18:19 | NUR ---
MS RN NOTES PT IS PERSISTENT ON LEAVING DESPITE NOT HAVING THE RESULTS OF HIS DOPPLER STUDY. JARAD THE DYNAMO REPAIRER WAS NOTIFIED AND STATED THAT HE WILL D/C THE PT FIRST THING IN THE MORNING ONCE THE RESULTS ARE IN. THIS WAS RELAYED TO THE PT BUT HE STATES THAT HE WILL LIKE TO LEAVE AMA. RISKS OF LEAVING AMA WERE DISCUSSED IN FULL DETAIL WITH PT. JARAD WAS NOTIFIED AGAIN AND STATED THAT THE "PT CAN LEAVE AMA, BUT HAVE HIM OR HIS PARTNER COME IN THE MORNING TO BENCH WORKER A PRESCRIPTION FOR LEVAQUIN". WILL PREPARE AMA AND HAVE PT SIGN FORM
--- NOTE | 2017-04-06 18:51 | NUR ---
MS JONATHAN AMA NOTES PT LEFT THE HOSPITAL AMA. HE REFUSED WOUND PHOTOS AND EXIT CARE INSTRUCTIONS. ORDERED, HE AGREED TO COME BY IN THE MORNING TO RECEIVE HIS PRESCRIPTION FOR LEVAQUIN. ALL NEEDS WERE MET DURING SHIFT AND ORDERS CARRIED OUT ACCORDINGLY. PT LEFT WITH ALL BELONGINGS AND HOME MEDICATIONS. IV WAS SUCCESSFULLY REMOVED WITH OUT ANY COMPLICATIONS. PT WAS ADVISED TO FOLLOW UP WITH HIS PRIMARY CARE PHYSICIAN. HE WAS SAFELY ESCORTED OUT OF THE HOSPITAL BY THE OIL DISPATCHER AND LEFT VIA PRIVATE VEHICLE DRIVEN BY HIS PARTNER.
--- NOTE | 2017-04-06 19:59 | NUR ---
AMA REPORT AMA INCIDENCE REPORT COMPLETED. ID: [id number]. CHARGE NURSE AND BLOOD BANK CUSTODIAN AWARE
== END 2017-04-06 18:45 | disposition left against medical advice (07) | DRG 853 ==
LOC: ER 15:55 → TELE1 17:44 → TELE-TD 19:46 → TELE1 04-03 10:36 → MEDSG1 04-03 13:15
PROVIDERS: ADMIT Internal Medicine; ATTEND Internal Medicine
PROC: 0JBQ0ZZ Excision of Right Foot Subcutaneous Tissue and Fascia, Open Approach (ICD-10-PCS; principal; 2017-04-05)
DX: A41.9 Sepsis, unspecified organism (principal); J15.6 Pneumonia due to other Gram-negative bacteria; N17.0 Acute kidney failure with tubular necrosis; J96.00 Acute respiratory failure, unspecified whether with hypoxia or hypercapnia; G93.41 Metabolic encephalopathy; E11.22 Type 2 diabetes mellitus with diabetic chronic kidney disease; D68.59 Other primary thrombophilia; I82.401 Acute embolism and thrombosis of unspecified deep veins of right lower extremity; L03.115 Cellulitis of right lower limb; L97.419 Non-pressure chronic ulcer of right heel and midfoot with unspecified severity; J44.0 Chronic obstructive pulmonary disease with (acute) lower respiratory infection; E11.42 Type 2 diabetes mellitus with diabetic polyneuropathy; E11.621 Type 2 diabetes mellitus with foot ulcer; I48.2 Chronic atrial fibrillation; F03.90 Unspecified dementia, unspecified severity, without behavioral disturbance, psychotic disturbance, mood disturbance, and anxiety; Z87.19 Personal history of other diseases of the digestive system; Z86.718 Personal history of other venous thrombosis and embolism; N40.0 Benign prostatic hyperplasia without lower urinary tract symptoms; Z85.72 Personal history of non-Hodgkin lymphomas; M47.896 Other spondylosis, lumbar region; I12.9 Hypertensive chronic kidney disease with stage 1 through stage 4 chronic kidney disease, or unspecified chronic kidney disease; N18.2 Chronic kidney disease, stage 2 (mild); Z79.84 Long term (current) use of oral hypoglycemic drugs; Z79.01 Long term (current) use of anticoagulants; G25.81 Restless legs syndrome; E11.51 Type 2 diabetes mellitus with diabetic peripheral angiopathy without gangrene
CPT/HCPCS: 36415; 36600; 70450-TC; 71010-TC; 72125-TC; 72131-TC; 80048-TC; 80053-TC; 80061-TC; 80076-TC; 80202-TC; 80305; 81000-TC; 82533; 82803-TC; 82947-TC; 82962-TC; 83605-TC; 83615-TC; 83735-TC; 84100-TC; 84484-TC; 85025-TC; 85730-TC; 86360; 87040-TC; 87081-TC; 87086-TC; 87186-TC; 87400; 93925-TC; 93971-TC; 97116-TC; 97530-TC; A4216; A4606; A6402; G0480; J1815; J2185; J2543; J3370; J7030; J7040; J7050; J7060; Z7610

== ENCOUNTER 2017-05-05 10:44 | Inpatient (IN) | payer OTHER ==
[~2017-05-05] VITALS: Ht 177.8 cm; Wt 83.9 kg
[2017-05-05] VITALS (31 sets, daily range): BP systolic 68–124; BP diastolic 36–82
[~2017-05-05 10:44] MED LIST changes: +AMLO10TA2 PO; +CHLO50TA PO; +DARU1TAB PO; -DARU400T2 PO; -DILT300C36 PO; +DOLU50TA PO; -ELVI1TAB3 PO; -ERGO500047 PO; +FLUD0.1T PO; +FURO40TA5 PO; +GLIM2TAB2 PO; -IPRA3AMP IH; -LEVO500T15 PO; +MYRBETRIQ PO; +PRAV10TA40 PO
--- NOTE | 2017-05-05 10:45 | NUR ---
[id number] FROM HOME: SEVERE SOB/RESPIRATORY DISTRESS. PATIENT ARRIVED ON AMBU BAG. PATIENT NOT ALERT, SHALLOW RESPIRATION. TRANSFERRED TO BED, BP WNL. MD AT BEDSIDE PREPARED FOR INTUBATION.
--- NOTE | 2017-05-05 10:50 | NUR ---
NEW IV STARTED ON RAC, 18 G. BLOOD DRAWN AND SENT TO LAB .
--- NOTE | 2017-05-05 10:51 | NUR ---
ETOMIDATE AND SUCC GIVEN PRIOR TO INTUBATION.
--- NOTE | 2017-05-05 10:52 | NUR ---
PATIENT INTUBATED: ET 7.5, 24 AT THE LIP
[2017-05-05] MEDS ORDERED: PROPOFOL 100 ML IV ONE (10:55)
--- NOTE | 2017-05-05 10:55 | NUR ---
VENT SETTINGS: AC 16, TV 500, FIO2 100%, PEEP 5
[2017-05-05] MEDS ORDERED: ETOMIDATE 2 MG/ML VIAL IV ONE ×2 (11:00→13:02)
[2017-05-05] MEDS ORDERED: LEVOFLOXACIN (500MG) 500 MG TABLET PO ONE (11:00)
[2017-05-05] MEDS ORDERED: PROPOFOL 100 ML IV PRN (11:00)
[2017-05-05] MEDS ORDERED: IV NS 0.9% 1,000 ML BAG IV ONE (11:00)
[2017-05-05] MEDS ORDERED: SUCCINYLCHOLINE CHLORIDE 20 MG/ML VIAL IV ONE ×2 (11:00→13:02)
[2017-05-05] MEDS ORDERED: CEFTRIAXONE 1GM BAG (ER ONLY) 50 ML IV ONE ×2 (11:00→11:40)
--- NOTE | 2017-05-05 11:00 | NUR ---
RT RECD PT ON RESP DISTRESS. INTUBATED WITH DR DYE with 7.5 ETT @ 24cm at the lip secured. Bilateral chest rise noted and color change on C02 place on vent settings AC 500 16 100% +5 Sputum sample obtained and sent to lab. Sx thick brown yellow copious large secretions Addendum: 05/05/17 at 1359 by JENNIFER DUMAS RT Amended: Links added.
[2017-05-05 11:05] LABS: BASOPHILS % (AUTO) 0.3 % (0.0-2.0); EOSINOPHILS % (AUTO) 0.2 % (0.0-6.0); HEMATOCRIT 36 % (39-51); HEMOGLOBIN 12.1 g/dL (13.5-17.5); LYMPHOCYTES # (AUTO) 1.1 /CMM (0.8-4.8); LYMPHOCYTES % (AUTO) 12.1 % (20.0-44.0); MEAN CORPUSCULAR HEMOGLOBIN 30 PG (26.0-33.0); MEAN CORPUSCULAR HGB CONC 33 g/dl (31.0-36.0); MEAN CORPUSCULAR VOLUME 89 fL (80-96); MONOCYTES # (AUTO) 0.6 /CMM (0.1-1.30); MONOCYTES % (AUTO) 6.6 % (2.0-12.0); NEUTROPHILS # (AUTO) 7.8 /CMM (1.8-8.9); NEUTROPHILS % (AUTO) 80.8 % (43.0-81.0); PLATELET COUNT (AUTO) 126 /CMM (150-450); RDW COEFFICIENT OF VARIATION 15.6 (11.5-15.0); RED BLOOD CELL COUNT(AUTO) 4.11 MIL/uL (4.5-6.0); WHITE BLOOD COUNT (AUTO) 9.5 K/uL (4.3-11.0)
[2017-05-05 11:21] LABS: ALANINE AMINOTRANSFERASE 25 U/L (12-78); ALBUMIN 2.8 g/dL (3.4-5.0); ALKALINE PHOSPHATASE 45 U/L (46-116); ASPARTATE AMINOTRANSFERASE 53 U/L (15-37); BILIRUBIN,DIRECT 0.1 mg/dL (0.0-0.2); BILIRUBIN,TOTAL 0.3 mg/dL (0.2-1.0); CALCIUM, SERUM 8.9 mg/dL (8.5-10.1); CARBON DIOXIDE 29 mmol/L (21-32); CHLORIDE 103 mmol/L (98-107); CREATININE 4.3 mg/dL (0.6-1.3); POTASSIUM 3.4 mmol/L (3.5-5.1); SODIUM SERUM 143 mmol/L (136-145); UREA NITROGEN, BLOOD 72 mg/dL (7-18)
[2017-05-05 11:23] LABS: TROPONIN I 0.096 ng/mL (0.00-0.056)
[2017-05-05 11:24] LABS: GLUCOSE 34 mg/dL (74-106)
[2017-05-05] MEDS ORDERED: DEXTROSE 50%-WATER 50 ML DISP.SYRIN ONE (11:24)
--- NOTE | 2017-05-05 11:25 | NUR ---
CRITICAL GLUCOSE, 34. INFORMED, ORDERED 1 AMP D50.
[2017-05-05] MEDS ORDERED: DEXTROSE 50%-WATER 50 ML DISP.SYRIN IVP ONE (11:30)
--- NOTE | 2017-05-05 11:51 | NUR ---
PAGED OPEN HEARTH FURNACE OPERATOR HELPER PANEL LORIN LARES.
--- NOTE | 2017-05-05 11:57 | NUR ---
PATIENT ASSIGNED TO ICU 257
[2017-05-05] MEDS ORDERED: LEVOFLOXACIN 500 MG /D5W 100ML 500 MG/100 ML PIGGYBACK IV ONE (12:00)
[2017-05-05] MEDS ORDERED: methylPREDNISolone SOD SUCC 125 MG/2ML VIAL IV ONE (12:00)
[2017-05-05] MEDS ORDERED: ACETAMINOPHEN 650 MG/SUPP.RECT RC ONE ×2 (12:00→12:13)
[2017-05-05] MEDS ORDERED: LEVOFLOXACIN 500 MG /D5W 100ML 100 ML IV ONE (12:13)
[2017-05-05] MEDS ORDERED: methylPREDNISolone SOD SUCC 125 MG/2ML VIAL ONE (12:13)
--- NOTE | 2017-05-05 12:15 | NUR ---
REPAGED LORIN LARES.
--- NOTE | 2017-05-05 12:25 | NUR ---
RT abg drawn after 1hour of intubation results PH 7.13 co2 54 p02 141.[address] maldonado. Changed vent setting to rate 0f 18 per MD Addendum: 05/05/17 at 1359 by JENNIFER DUMAS RT Amended: Links added.
--- NOTE | 2017-05-05 12:54 | NUR ---
report given to JONATHAN Burleson - continue plan of care
[2017-05-05] MEDS ORDERED: SULFAMETHOXAZOLE/TRIMETHOPRIM 25 ML in IV D5W 500 ML IV SCH (13:00)
--- NOTE | 2017-05-05 13:15 | NUR ---
CORE BLOWER OPERATOR RECEIVED PATIENT FROM THE ER. ORALLY INTUBATED. SEDATED ON DIPRIVAN GTT. AFIB ON MONITOR. 4 PERSON ASSIST TRANSFER TO BED. HYPOTENSIVE AT THIS TIME. AFEBRILE. REINA DRAINING URINE TO GRAVITY. WILL CONTINUE TO MONITOR AND PROVIDE CARE.
--- NOTE | 2017-05-05 13:27 | NUR ---
PATIENT REC'S TRANSFERRED FROM ER ORALLY INTUBATED WITH A 7.5 ETT SECURED AT 25CM MID LIP VIA ANCHOR FAST. VENT SETTINGS SET PER MD SYED WOLF WELL. VENT ALARMS CHECKED + AUDIBLE. CUFF PRESSURE CHECKED PROSPECTING OBSERVER. SX'D WITH MOD AMT YELLOW SEMITHICK SECRETIONS. B/S COARSE. AMBU BAG AT HOB. Addendum: 05/05/17 at 1329 by EDDIE MAJANO RT Amended: Links added.
--- NOTE | 2017-05-05 13:46 | NUR ---
PER MD ORDER ETT PUSHED IN 2CM AND SECURED AT 27CM AT THE LIP
[2017-05-05] MEDS ORDERED: IV NS 0.9% 500 ML IV STA (13:53)
[2017-05-05] MEDS ORDERED: HYDROCORTISONE SOD SUCCINATE 100 MG/2 ML VIAL IV ONE (14:00)
[2017-05-05] MEDS ORDERED: PHENYLEPHRINE 80 MG in IV D5W 250 ML IV PRN (14:00)
[2017-05-05 14:10] LABS: ABG BASE EXCESS -0.2 mmol/L; ABG OXYGEN SATURATION 97.6 % (92.0-98.5); ABG PH 7.312 (7.350-7.450); ABG PO2 141.4 mmHg (75.0-100.0); AaDO2 517.6 mmHg; COHb 0.7 % (0.5-1.5); MetHb 0.4 % (0.0-1.5); O2Hb 96.5 % (94.0-97.0); PEEP,BG 5 cm H2O; SITE, ABG Right Radial; VT, ABG 500 mL
[2017-05-05 14:14] LABS: ABG BASE EXCESS -0.3 mmol/L; ABG PCO2 40.7 mmHg (35.0-45.0); ABG PH 7.397 (7.350-7.450); ABG PO2 78.5 mmHg (75.0-100.0); AaDO2 449.2 mmHg; COHb 0.2 % (0.5-1.5); O2Hb 92.2 % (94.0-97.0); PEEP,BG 0 cm H2O; SITE, ABG Right Radial
[2017-05-05] MEDS: PROPOFOL 100 ML IV PRN ×2 (14:19→23:17)
[2017-05-05] MEDS: PIPERACILLIN /TAZOBACTAM 3.375 G in IV D5W 50 ML IV SCH ×2 (14:31→20:27)
[2017-05-05] MEDS: IV D5/ 0.9% NACL 1,000 ML IV PRN (14:32)
--- NOTE | 2017-05-05 14:59 | NUR ---
BROADCAST MAINTENANCE ENGINEER RN SPOKE TO PATIENT'S DAUGHTER GAMALIEL HEARD. RN EDUCATED DAUGHTER ABOUT PATIENT'S CURRENT HEALTH STATUS. PER DAUGHTER PATIENT IS DNR/DNI. DAUGHTER REFUSES PICC LINE PLACEMENT. PATIENT IS RECEIVING NEOSENEPHRINE PERIPHERALLY THROUGH RIGHT AC 18G IV. GOOD BLOOD RETURN ON THAT IV. DRYWALL TAPER HELPER AWARE. FAMILY AT BEDSIDE. WILL CONTINUE TO MONITOR AND PROVIDE CARE.
[2017-05-05] MEDS ORDERED: SULFAMETHOXAZOLE/TRIMETHOPRIM 10 ML in IV D5W 250 ML IV SCH (16:00)
[2017-05-05] MEDS ORDERED: IV NS 0.9% 1,000 ML IV PRN (16:01)
[2017-05-05] MEDS ORDERED: Z GUARD REMEDY 2 OZ OINT TP PRN (16:30)
[2017-05-05] MEDS ORDERED: ONDANSETRON HCL/PF 4 MG/2 ML VIAL IVP PRN (16:30)
--- NOTE | 2017-05-05 16:43 | NUR ---
CUSTOMER LOGISTICS MANAGER PATIENT'S DAUGHTER IS AN ER NURSE. RN EDUCATED PATIENT'S DAUGHTER REGARDING POSSIBLE NECROSIS THAT MAY CAUSED BY INFUSING NEOSENEPHRINE PERIPHERALLY. DAUGHTER UNDERSTANDS RISKS AND BENEFITS BEHIND PLACING A PICC LINE. DAUGHTER STILL REFUSES PICC LINE AND CONFIRMS THE DNR/DNI STATUS. CONVERSATION WITNESSED BY CHARGE NURSE.
[2017-05-05] MEDS: LISINOPRIL (20MG) 20 MG TABLET PO SCH (17:00)
[2017-05-05] MEDS: AMLODIPINE BESYLATE 10 MG TABLET PO SCH (17:00)
[2017-05-05] MEDS: PREGABALIN 25 MG CAPSULE PO SCH (17:00)
[2017-05-05] MEDS ORDERED: methylPREDNISolone SOD SUCC 40 MG/ML VIAL IV SCH (17:00)
[2017-05-05] MEDS ORDERED: HYDROCORTISONE 10 MG TABLET PO SCH (17:00)
--- NOTE | 2017-05-05 19:30 | NUR ---
METAL AND PLASTIC HEATER INITIAL NOTE RECEIVED PT FROM NOLAN RN. PT IN BED, INTUBATED AND SEDATED. LUNGS SOUNDS RHONCHI. VENT SETTINGS AC 18, TV 500, FIO2 80%, NO PEEP. TOLERATING CURRENT SETTINGS. BOWEL SOUNDS PRESENT, OG TUBE IN PLACE WITH 100 CC BILE RESIDUAL. PULSES PRESENT. IV PATENT AND INTACT. ORAL CARE PROVIDED. REPOSITIONED FOR COMFORT. BED IN LOW LOCKED POSITION. WILL CONTINUE TO MONITOR.
--- NOTE | 2017-05-05 19:39 | NUR ---
PT RECEIVED INTUBATED WITH 7.5 ETT SECURED AT 25CM AT THE LIP. TOLERATING VENT SETTINGS. NO RESP DISTRESS. SX'D FOR MOD AMT OF THICK YELLOW SECRETIONS. VENT ALARMS SET AND AUDIBLE. AMBU BAG AT BEDSIDE. VENT PLUGGED INTO RED OUTLET. WILL CONTINUE TO MONITOR. Addendum: 05/05/17 at 1939 by DESI RUSHING RT Amended: Links added.
[2017-05-05] MEDS: BLOOD SUGAR DIAGNOSTIC 1 EACH STRIP IN SCH ×2 (20:33→20:39)
[2017-05-05] MEDS: ALBUTEROL FS 2.5 MG/3 ML VIAL.NEB NEB SCH (20:56)
[2017-05-05] MEDS: IPRATROPIUM NEB FS 0.5 MG/2.5 ML AMPUL.NEB NEB SCH (20:56)
[2017-05-05] MEDS ORDERED: DEXTROSE 50%-WATER 50 ML DISP.SYRIN IV PRN (21:00)
[2017-05-05] MEDS: TRIMETHOPRIM IV SCH (21:42)
[2017-05-05] MEDS: SULFAMETHOXAZOLE IV SCH (21:42)
[2017-05-05] MEDS: D5W IV SCH (21:42)
[2017-05-05] MEDS ORDERED: ATORVASTATIN 10 MG TABLET PO SCH (22:00)
[2017-05-05] MEDS: MORPHINE SULFATE INJ 2 MG/ML DISP.SYRIN IV PRN (22:49)
--- NOTE | 2017-05-05 23:19 | NUR ---
FI02 DECREASED TO 60%. PT LUCIANO WELL. NO ADVERSE REACTION. Addendum: 05/05/17 at 2319 by DESI RUSHING RT Amended: Links added.
--- NOTE | 2017-05-05 23:30 | NUR ---
MARKET ANALYST BED BATH PROVIDED. PICTURES TAKEN OF REDNESS ON SACRUM AND UPPER BACK BONY PROMINENCE. REPOSITIONED FOR COMFORT. BED IN LOW LOCKED POSITION. WILL CONTINUE TO MONITOR.
[2017-05-06] VITALS (53 sets, daily range): BP systolic 90–147; BP diastolic 51–88
[2017-05-06] MEDS: BLOOD SUGAR DIAGNOSTIC 1 EACH STRIP IN SCH ×4 (00:02→17:19)
[2017-05-06] MEDS: INSULIN REGULAR, HUMAN 100 UNIT/ML 3 ML VIAL SQ PRN ×4 (00:03→17:20)
[2017-05-06] MEDS: IV D5/ 0.9% NACL 1,000 ML IV PRN (02:25)
[2017-05-06] MEDS: PIPERACILLIN /TAZOBACTAM 3.375 G in IV D5W 50 ML IV SCH ×4 (04:48→17:19)
[2017-05-06] MEDS: PROPOFOL 100 ML IV PRN ×4 (04:49→20:57)
[2017-05-06 05:24] LABS: EOSINOPHILS % (AUTO) 0.1 % (0.0-6.0); HEMATOCRIT 35 % (39-51); HEMOGLOBIN 11.7 g/dL (13.5-17.5); LYMPHOCYTES # (AUTO) 0.6 /CMM (0.8-4.8); LYMPHOCYTES % (AUTO) 5.2 % (20.0-44.0); MEAN CORPUSCULAR HEMOGLOBIN 30 PG (26.0-33.0); MEAN CORPUSCULAR HGB CONC 34 g/dl (31.0-36.0); MEAN CORPUSCULAR VOLUME 89 fL (80-96); MONOCYTES # (AUTO) 0.4 /CMM (0.1-1.30); MONOCYTES % (AUTO) 3.9 % (2.0-12.0); NEUTROPHILS # (AUTO) 10.4 /CMM (1.8-8.9); NEUTROPHILS % (AUTO) 90.8 % (43.0-81.0); PLATELET COUNT (AUTO) 102 /CMM (150-450); RDW COEFFICIENT OF VARIATION 15.8 (11.5-15.0); RED BLOOD CELL COUNT(AUTO) 3.91 MIL/uL (4.5-6.0); WHITE BLOOD COUNT (AUTO) 11.4 K/uL (4.3-11.0)
[2017-05-06 05:44] LABS: ALANINE AMINOTRANSFERASE 34 U/L (12-78); ALBUMIN 2.2 g/dL (3.4-5.0); ALKALINE PHOSPHATASE 42 U/L (46-116); ASPARTATE AMINOTRANSFERASE 126 U/L (15-37); BILIRUBIN,TOTAL 0.3 mg/dL (0.2-1.0); CALCIUM, SERUM 8.3 mg/dL (8.5-10.1); CARBON DIOXIDE 27 mmol/L (21-32); CHLORIDE 108 mmol/L (98-107); CREATININE 2.9 mg/dL (0.6-1.3); MAGNESIUM 2.3 mg/dL (1.8-2.4); PHOSPHORUS 4.4 mg/dL (2.5-4.9); POTASSIUM 3.3 mmol/L (3.5-5.1); SODIUM SERUM 146 mmol/L (136-145); TOTAL PROTEIN, SERUM 6.3 g/dL (6.4-8.2); UREA NITROGEN, BLOOD 54 mg/dL (7-18)
[2017-05-06 05:54] LABS: CHOLESTEROL 122 mg/dL (<200); HDL CHOLESTEROL 29 mg/dL (40-60); LDL 65 mg/dL (0-99); THYROID STIMULATING HORMONE 0.142 uIU/mL (0.358-3.74); TRIGLYCERIDES 124 mg/dL (30-150)
[2017-05-06 05:55] LABS: GLUCOSE 371 mg/dL (74-106)
[2017-05-06] MEDS ORDERED: SULFAMETHOXAZOLE/TRIMETHOPRIM 10 ML VIAL IV ONE (06:07)
[2017-05-06] MEDS: TRIMETHOPRIM IV SCH (06:18)
[2017-05-06] MEDS: SULFAMETHOXAZOLE IV SCH (06:18)
[2017-05-06] MEDS: D5W IV SCH (06:18)
--- NOTE | 2017-05-06 07:36 | NUR ---
TALENT ACQUISITION RELATIONSHIP MANAGER RECEIVED PATIENT FROM THE PREVIOUS SHIFT. PATIENT IS IN BED. SEDATED ON DIPRIVAN FOR COMFORT AND TO PREVENT AGITATION. AFIB ON MONITOR. AFEBRILE. NO ACUTE DISTRESS NOTED. WILL CONTINUE TO MONITOR AND PROVIDE CARE.
[2017-05-06] MEDS: IPRATROPIUM NEB FS 0.5 MG/2.5 ML AMPUL.NEB NEB SCH ×4 (08:07→20:16)
[2017-05-06] MEDS: ALBUTEROL FS 2.5 MG/3 ML VIAL.NEB NEB SCH ×4 (08:07→20:16)
[2017-05-06] MEDS: LISINOPRIL (20MG) 20 MG TABLET PO SCH ×2 (08:31→15:58)
[2017-05-06] MEDS: PREGABALIN 25 MG CAPSULE PO SCH ×2 (08:53→17:19)
[2017-05-06] MEDS: HYDROCORTISONE 5 MG TABLET PO SCH ×2 (08:53→17:19)
[2017-05-06] MEDS ORDERED: FLUDROCORTISONE 0.1 MG TABLET PO SCH (09:00)
[2017-05-06] MEDS: AMLODIPINE BESYLATE 10 MG TABLET PO SCH ×2 (09:00→15:57)
[2017-05-06] MEDS ORDERED: Darunavir/Cobicistat (Prezcobix 800 mg-150 mg Tablet) PO SCH (09:00)
[2017-05-06] MEDS ORDERED: Medication Not On Formulary EA (Dolutegravir Sodium (Tivicay) 50 MG) PO SCH (09:00)
[2017-05-06] MEDS ORDERED: FINASTERIDE (5 MG) 5 MG TABLET PO SCH (09:00)
[2017-05-06 09:14] LABS: ABG BASE EXCESS 0.7 mmol/L; ABG OXYGEN SATURATION 92.2 % (92.0-98.5); ABG PCO2 34.5 mmHg (35.0-45.0); ABG PH 7.462 (7.350-7.450); ABG PO2 69.4 mmHg (75.0-100.0); AaDO2 320.5 mmHg; COHb 0.3 % (0.5-1.5); MetHb 0.4 % (0.0-1.5); O2Hb 91.6 % (94.0-97.0); SITE, ABG Right Radial
[2017-05-06] MEDS ORDERED: IV NS 0.9% 1,000 ML IV PRN (10:00)
--- NOTE | 2017-05-06 10:05 | NUR ---
SEDATION VACATION DURING 20 MINUTE SEDATION VACATION, RN DECREASED PROPOFOL RATE FROM 40 MCG TO 20 MCG. PATIENT NOTED TO FULLY WAKE UP, AND ABLE TO FOLLOW COMMANDS. TACHYPNEA NOTED. PATIENT WAS RE SEDATED FOR SAFETY.
[2017-05-06] MEDS ORDERED: TIVICAY 50 MG PO SCH (10:13)
[2017-05-06] MEDS ORDERED: PRAVASTATIN 10 MG PO SCH (10:14)
[2017-05-06] MEDS ORDERED: PREZCOBIX PO SCH (10:16)
[2017-05-06] MEDS ORDERED: IV NS 0.9% 250 ML IV STA (11:41)
--- NOTE | 2017-05-06 12:03 | NUR ---
PER DR CONTI PEEP OF 5 ADDED TO VENT. FIO2 INCREASED TO 80% Addendum: 05/06/17 at 1204 by EDDIE MAJANO RT Amended: Links added.
--- NOTE | 2017-05-06 12:20 | NUR ---
PER DR CONTI ETT WAS PULLED BACK 2CM AND SECURED AT 25CM MID LIP.
[2017-05-06] MEDS ORDERED: POTASSIUM CHLORIDE 20 MEQ POWDER PACKET GT ONE (14:30)
[2017-05-06] MEDS ORDERED: TRIMETHOPRIM IV SCH (16:00)
[2017-05-06] MEDS ORDERED: D5W IV SCH (16:00)
[2017-05-06] MEDS ORDERED: SULFAMETHOXAZOLE IV SCH (16:00)
[2017-05-06] MEDS ORDERED: HOME MED - ELIQUIS 5MG PO SCH (17:00)
[2017-05-06] MEDS ORDERED: ELIQUIS 5 MG PO SCH (17:00)
[2017-05-06] MEDS ORDERED: HEPARIN SODIUM, PORCINE 5000 UNITS/1 ML VIAL SQ SCH (18:00)
--- NOTE | 2017-05-06 19:30 | NUR ---
CENTRIFUGAL STATION OPERATOR INITIAL NOTE RECEIVED PATIENT FROM NOLAN CASTILLO. PT IS IN BED. INTUBATED AND SEDATED. VENT SETTINGS AC 18 TV 500 FIO2 80% PEEP 5. TOLERATING VENT SETTINGS. BOWEL SOUNDS PRESENT. OG TUBE PATENT WITH 20CC RESIDUAL. BOWEL SOUNDS PRESENT. REINA INTACT AND DRAINING URINE. IV PATENT AND INTACT. PULSES PRESENT. BED IN LOW LOCKED POSITION. WILL CONTINUE TO MONITOR.
--- NOTE | 2017-05-06 20:10 | NUR ---
QUALITY TECHNICIAN FIBERGLASS DPOA DAUGHTER AT BEDSIDE. SEDATION DECREASED SO SHE CAN SPEAK WITH HER DAD ABOUT DNI/DNR ORDER.
--- NOTE | 2017-05-06 21:00 | NUR ---
SHANK PINNER ARMANDO GUALLPA. REQUESTING EXTUBATION WITH COMFORT CARE ONLY. DUSTIN STEAM HOIST OPERATOR CALLED. AWAITING CALL BACK.
--- NOTE | 2017-05-06 21:20 | NUR ---
BOAT ENGINE MECHANIC DUSTIN CERTIFIED PROSTHETIST VICE PRESIDENT RETURNED CALL. UPDATED HER ABOUT SITUATION. DUSTIN SPOKE WITH RAMU. ORDERS RECEIVED TO EXTUBATE AND COMFORT MEASURES ONLY. FAMILY TRYING TO ARRANGE HOSPICE AT THIS TIME.
--- NOTE | 2017-05-06 21:48 | NUR ---
PT RECEIVED ON VENT VIA CHARTED ROUTE AND SETTINGS AMBU BAG AT BEDSIDE ALARMS SET AND AUDIBLE. VENT PLUGGED INTO RED OUTLET SUCTIONED A SMALL AMOUNT OF THICK WHITE SECRETIONS. Addendum: 05/06/17 at 2150 by FRANC SARABIA RT Amended: Links added.
[2017-05-06] MEDS: MORPHINE SULFATE INJ 2 MG/ML DISP.SYRIN IV PRN (22:00)
[2017-05-06] MEDS ORDERED: DC PROPOFOL WHEN EXTUBATED XX PRN (22:00)
--- NOTE | 2017-05-06 22:18 | NUR ---
HEALTH AND WELLNESS ADVISOR PT SUCCESSFULLY EXTUBATED. PLACED ON NON REBREATHER. WILL CONTINUE TO MONITOR.
[2017-05-06] MEDS ORDERED: MORPHINE SULFATE INJ 2 MG/ML DISP.SYRIN IV PRN (22:30)
--- NOTE | 2017-05-06 22:45 | NUR ---
[facility] [employer] [facility] FROM [facility] HERE. FAMILY SIGNING ALL CONSENTS. TRANSPORTATION BEING ARRANGED. AWAITING ETA FOR AMBULANCE.
[2017-05-07] MEDS ORDERED: MORPHINE SULFATE INJ 4 MG/ML DISP.SYRIN ONE (00:36)
--- NOTE | 2017-05-07 01:12 | NUR ---
[facility] HERE FOR SMOKE [facility]ASER. RAMU ROBERTS AT BEDSIDE.
[2017-05-07] MEDS ORDERED: ATORVASTATIN 10 MG TABLET PO SCH (09:00)
== END 2017-05-07 01:10 | disposition hospice, home (50) | DRG 974 ==
LOC: ER 10:47 → ICU 12:22
PROVIDERS: ADMIT Nurse Practitioner Acute Care; ATTEND Nurse Practitioner Acute Care
PROC: 5A1945Z Respiratory Ventilation, 24-96 Consecutive Hours (ICD-10-PCS; principal; 2017-05-05)
PROC: 0BH18EZ Insertion of Endotracheal Airway into Trachea, Via Natural or Artificial Opening Endoscopic (ICD-10-PCS; 2017-05-05)
DX: B20 Human immunodeficiency virus [HIV] disease (principal); B59 Pneumocystosis; J96.01 Acute respiratory failure with hypoxia; N17.0 Acute kidney failure with tubular necrosis; I21.4 Non-ST elevation (NSTEMI) myocardial infarction; R57.9 Shock, unspecified; G93.41 Metabolic encephalopathy; D68.59 Other primary thrombophilia; N18.3 Chronic kidney disease, stage 3 (moderate); I82.413 Acute embolism and thrombosis of femoral vein, bilateral; E11.22 Type 2 diabetes mellitus with diabetic chronic kidney disease; D69.6 Thrombocytopenia, unspecified; E88.09 Other disorders of plasma-protein metabolism, not elsewhere classified; E87.6 Hypokalemia; F32.9 Major depressive disorder, single episode, unspecified; F41.9 Anxiety disorder, unspecified; I48.91 Unspecified atrial fibrillation; I12.9 Hypertensive chronic kidney disease with stage 1 through stage 4 chronic kidney disease, or unspecified chronic kidney disease; Z79.01 Long term (current) use of anticoagulants; Z86.718 Personal history of other venous thrombosis and embolism; G89.4 Chronic pain syndrome; Z85.72 Personal history of non-Hodgkin lymphomas; F02.80 Dementia in other diseases classified elsewhere, unspecified severity, without behavioral disturbance, psychotic disturbance, mood disturbance, and anxiety; E11.65 Type 2 diabetes mellitus with hyperglycemia; G25.81 Restless legs syndrome; G62.9 Polyneuropathy, unspecified; N40.0 Benign prostatic hyperplasia without lower urinary tract symptoms; Z79.84 Long term (current) use of oral hypoglycemic drugs
CPT/HCPCS: 31720; 36415; 36600; 71010-TC; 80048-TC; 80053-TC; 80061-TC; 80076-TC; 82533; 82803-TC; 82962-TC; 83605-TC; 83615-TC; 83735-TC; 84100-TC; 84439-TC; 84443-TC; 84484-TC; 85025-TC; 87040-TC; 87081-TC; 87086-TC; 87186-TC; 87281; 87400; 93307-TC; 93970-TC; 94002-TC; 94003-TC; 94640-TC; 94799-TC; A4606; J0330; J0696; J1720; J1815; J1956; J2270; J2370; J2543; J2930; J3490; J7030; J7042; J7050; J7060; Z7610